=== PATIENT | female | born 1995 | race Caucasian/White ===

== ENCOUNTER 2025-01-09 00:05 | Inpatient (IN) | payer MEDICAID, SELFPAY ==
[2025-01-09] VITALS (29 sets, daily range): BP systolic 103–128; BP diastolic 53–71; PULSE 61–106; RESP 14–17; TEMP 36.3–36.9; O2SAT 96–98; BMI 29.9
--- OUTSIDE RECORDS SUMMARY | 2025-01-09 00:10 | XMS RPT_ITS | CCD ---
Author Organization [facility] Care Team Providers Care Prefabricator Name Role Phone Erick Dover Unavailable No, Physician Primary Care Provider Unavailabl e STEPHANIE TIERRA HAILEE Attending Unavailable PLASCENCIA, TIERRA HAILEE Primary Care Unavailable Plascencia, Tierra Hailee Primary Care Provider No, Physician Unavailable Unavailable Erick Dover Unavailable [phone] PLASCENCIA, TIERRA HAILEE Primary Care Unavailable JULIEN CORONADO Attending Unavail able Plascencia, Tierra Hailee Primary Care Provider [phone] Plascencia BROOMCORN SORTER, Tierra Hailee Primary Care Provider No, Physician Unavailable Unavailable Plascencia BROOMCORN SORTER, Tierra Hailee Unavailable Plascencia BROOMCORN SORTER, Tierra Hailee Primary Care Provider Plascencia BROOMCORN SORTER, Tierra Hailee Primary Care Provider Plascencia BROOMCORN SORTER, Tierra Hailee Unavailable Plascencia BROOMCORN SORTER, Tierra Hailee Unavailable [phone] PLASCENCIA, TIERRA HAILEE Primary Care Unavailable PLASCENCIA, TIERRA HAILEE Attending Unavailable PLASCENCIA, TIERRA HAILEE Referring Unavailable PLASCENCIA, TIERRA HAILEE Primary Care Unavailable RUTH HUNT Admitting Unavailable RUTH HUNT Attending Unavailable PLASCENCIA, TIERRA HAILEE Referring Unavailable PLASCENCIA, TIERRA HAILEE Primary Care Unavailable PLASCENCIA, TIERRA HAILEE Attending Unavailable PLASCENCIA, TIERRA HAILEE Admitting Unavailable PLASCENCIA, TIERRA HAILEE Primary Care Unavailable PLASCENCIA, TIERRA HAILEE Admitting Unavailable PLASCENCIA, TIERRA HAILEE Primary Care Unavailable PLASCENCIA, TIERRA HAILEE Referring Unavailable PLASCENCIA, TIERRA HAILEE Attending Unavailable PLASCENCIA, TIERRA HAILEE Primary Care Unavailable Plascencia BROOMCORN SORTER, Tierra Hailee Primary Care Provider No, Physician Unavailable Unavailable Tierra Plascencia CNP Unavailable Tierra Plascencia CNP Primary Care Provider Tierra Plascencia CNP Unavailable Unavailable Primary Care Provider Unavailabl e EILEEN BARROS Attending Unavailable PLOTTS, HALLE Referring Unavailable DENILSON SUMMERS Attending Unavailable PLOTTS, HALLE Attending Unavailable SELF Referring Unavailable PLOTTS, HALLE Referring Unavailable PLOTTS, HALLE Referring Unavailable STANLEY MURILLO Attending Unavailable PLOTTS, HALLE Referring Unavailable CHIDISTANLEY Attending Unavailable SELF Referring Unavailable PLOTTS, HALLE Attending Unavailable PLOTTS, HALLE Referring Unavailable Allergies Allergy Classification Reported Allergen(s) Allergy Type Date of Onset Reaction(s) Facility Penicillins (antibiotic) (12 sources) Amoxicillin Drug Allergy 01-03-2016 [facility] (18 sources) Amoxicillin; Translations: [Unknown] Drug Allergy 01-03-2016 [facility] Medications Current Medications Medication Drug Class(es) Dates Sig (Normalized) Sig (Original) atovaquone 250 mg / proguanil hydrochloride 100 mg oral tablet (1 source) Antimalarial, Antiprotozoal Start: 06-04-2022 atovaquone-progua niL (MALARONE) 250-100 mg per tablet Indications: Need for malaria prophylaxis Start 2 days prior to entering a malaria-endemic area, continue throughout the stay and for 7 days after returning . 30 tablet 0 06/04/2022 Active ofloxacin 3 mg/ml otic solution (2 sources) Quinolone Antimicrobial Start: 11-30-2018 End: 12-07-2018 ofloxacin (FLOXIN) 0.3 % otic solution Indications: Left ear impacted cerumen Administer 10 (ten) drops to the right ear daily for 7 days . 5 mL 0 11/30/2018 12/07/2018 Active omeprazole 10 mg delayed release oral capsule (4 sources) Proton Pump Inhibitor Start: 09-16-2020 omeprazole (PRILOSEC) 10 MG capsule vitamin with Ca-Iron-FA 27-1 mg Tab (2 sources) take 1 tablet by mouth once daily vitamin with Ca-Iron-FA 27-1 mg Tab Take 1 (one) tablet by mouth daily . 0 Active Completed/Discontinued Medications Medication Drug Class(es) Dates Sig (Normalized) Sig (Original) [id number] 200 actuat albuterol 0.09 mg/actuat metered dose inhaler (7 sources) beta2-Adrenergic Agonist Start: 08-17-2020 End: 06-10-2022 take 2 puff(s) by inhalation every six hours as needed for cough albuterol (Ventolin HFA) 90 mcg/actuation inhaler Indications: Chest congestion Inhale 2 (two) puffs every 6 (six) hours as needed for wheezing, shortness of breath or cough . 1 Inhaler 0 08/17/2020 06/10/2022 Discontinued (Therapy completed) azithromycin 500 mg oral tablet (2 sources) Macrolide Antimicrobial Start: 08-17-2020 End: 08-23-2020 take 1 tablet by mouth once daily azithromycin (ZITHROMAX) 500 MG tablet Indications: Chest congestion Take 1 (one) tablet (500 mg total) by mouth daily . 5 tablet 0 08/17/2020 08/23/2020 Discontinued (Therapy completed) busPIRone hydrochloride 5 mg oral tablet (4 sources) Start: 04-10-2020 End: 04-10-2021 take 1 tablet by mouth three times daily as needed for anxiety busPIRone (BUSPAR) 5 MG tablet Indications: Palpitations , Anxiety Take 1 (one) tablet (5 mg total) by mouth 3 (three) times a day as needed (anxiety) . 270 tablet 1 04/10/2020 08/23/2020 Discontinued (Therapy completed) doxycycline hyclate 100 mg oral tablet (6 sources) Tetracycline-class Drug Start: 08-23-2020 End: 09-12-2020 take 1 tablet by mouth twice daily doxycycline hyclate (VIBRA-TABS) 100 MG tablet Indications: Chest congestion Take 1 (one) tablet (100 mg total) by mouth 2 (two) times a day . 20 tablet 0 08/23/2020 09/12/2020 Discontinued (Therapy completed) Start: 10-20-2019 End: 04-10-2020 take 1 tablet by mouth twice daily doxycycline hyclate (VIBRA-TABS) 100 MG tablet Indications: Infection of toenail Take 1 (one) tablet (100 mg total) by mouth 2 (two) times a day . 20 tablet 0 10/20/2019 04/10/2020 Discontinued (Therapy completed) meclizine hydrochloride 25 mg oral tablet (4 sources) Antiemetic Start: 09-12-2020 End: 06-10-2022 take 1 tablet by mouth three times daily as needed for nausea meclizine (ANTIVERT) 25 mg tablet Indications: Nausea Take 1 (one) tablet (25 mg total) by mouth 3 (three) times a day as needed for nausea . 30 tablet 0 09/12/2020 06/10/2022 Discontinued (Therapy completed) methylPREDNISolone (2 sources) Corticosteroid Start: 08-17-2020 End: 08-23-2020 methylPREDNISolone (MEDROL DOSEPACK) 4 mg tablet Indications: Chest congestion follow package directions . 21 tablet 0 08/17/2020 08/23/2020 Discontinued (Therapy completed) Start: 08-17-2020 End: 08-24-2020 methylPREDNISolone (MEDROL D OSEPACK) 4 mg tablet Indications: Chest congestion follow package directions . 21 tablet 0 08/17/2020 08/24/2020 Active ondansetron 8 mg oral tablet (4 sources) Serotonin-3 Receptor Antagonist Start: 09-12-2020 End: 06-10-2022 take 1 tablet by mouth every eight hours as needed for nausea and nausea and nausea ondansetron (ZOFRAN) 8 MG tablet Indications: Nausea Take 1 (one) tablet (8 mg total) by mouth every 8 (eight) hours as needed for nausea . 30 tablet 0 09/12/2020 06/10/2022 Discontinued (Therapy completed) pantoprazole 40 mg delayed release oral tablet (4 sources) Proton Pump Inhibitor Start: 04-11-2020 End: 04-11-2021 take 1 tablet by mouth once daily pantoprazole (PROTONIX) 40 MG tablet Indications: Gastroesophageal reflux disease, unspecified whether esophagitis present Take 1 (one) tablet (40 mg total) by mouth daily . 90 tablet 1 04/11/2020 08/23/2020 Discontinued (Therapy completed) Start: 04-10-2020 End: 04-11-2020 take 1 tablet by mouth once daily pantoprazole (PROTONIX) 20 MG tablet Indications: Gastroesophageal reflux disease, unspecified whether esophagitis present Take 1 (one) tablet (20 mg total) by mouth daily . 90 tablet 1 04/10/2020 04/11/2020 Discontinued propranolol hydrochloride 10 mg oral tablet (1 source) beta-Adrenergic Mirlande Start: 04-05-2020 End: 04-10-2020 take 1 tablet by mouth three times daily propranoloL (INDERAL) 10 MG tablet take 1 tablet by mouth three times a day if needed for PALPITATIONS 0 04/05/2020 04/10/2020 Discontinued (Therapy completed) Problems Active Problems Problem Classification Problem Date Documented Date Episodic/Chronic Anxiety disorders (10 sources) Anxiety; Translations: [Anxiety disorder, unspecified] Onset: 05-02-2020 05-02-2020 Chronic Esophageal disorders (10 sources) Gastroesophageal reflux disease; Translations: [Gastro-esophageal reflux disease without esophagitis] Onset: 05-02-2020 05-02-2020 Chronic Other complications of (1 source) Other specified related conditions, third trimester; Translations: [Vaginal discharge during in third trimester (HCC)] Onset: 12-14-2024 Episodic Other ear and sense organ disorders (1 source) Hearing difficulty; Translations: [Difficulty hearing, left] Chronic Other ear and sense organ disorders (1 source) Impacted cerumen in left ear; Translations: [Left ear impacted cerumen] Other female genital disorders (5 sources) Mass of ovary; Translations: [Other noninflammatory disorders of ovary, fallopian tube and broad ligament] Onset: 09-26-2020 Episodic Other female genital disorders (2 sources) Other specified noninflammatory disorders of vagina; Translations: [Vaginal discharge] Onset: 12-14-2024 Episodic Other nervous system disorders (1 source) Tremor, unspecified; Translations: [Tremor] Onset: 12-28-2024 Episodic Other and delivery including normal (2 sources) Encounter for supervision of other normal , third trimester; Translations: [Encounter for supervision of normal , unspecified, third trimester] Onset: 11-08-2024 Episodic Other screening for suspected conditions (not mental disorders or infectious disease) (12 sources) Electrocardiogram abnormal; Translations: [Abnormal electrocardiogram [ECG] [EKG]] Onset: 05-02-2020 05-02-2020 Episodic Other upper respiratory infections (1 source) Upper respiratory infection; Translations: [Upper respiratory tract infection, unspecified type] Episodic Polyhydramnios and other problems of amniotic cavity (2 sources) Polyhydramnios, unspecified trimester, not applicable or unspecified; Translations: [Polyhydramnios, third trimester, not applicable or unspecified] Onset: 12-07-2024 Episodic Residual codes; unclassified (1 source) Other general symptoms and signs; Translations: [Suspected Covid-19 Virus Infection] Episodic Residual codes; unclassified (1 source) 38 weeks gestation of ; Translations: [38 weeks gestation of (HCC)] Onset: 12-23-2024 Episodic Residual codes; unclassified (1 source) 36 weeks gestation of ; Translations: [36 weeks gestation of (HCC)] Onset: 12-14-2024 Episodic Residual codes; unclassified (1 source) 35 weeks gestation of ; Translations: [35 weeks gestation of ([facility])] Onset: 12-07-2024 Episodic Residual codes; unclassified (1 source) 33 weeks gestation of ; Translations: [33 weeks gestation of ([facility])] Onset: 11-23-2024 Episodic Past or Other Problems Problem Classification Problem Date Documented Date Episodic/Chronic Cardiac dysrhythmias (10 sources) Palpitations; Translations: [Palpitations] Onset: 05-02-2020 05-02-2020 Episodic Nausea and vomiting (5 sources) Nausea; Translations: [Nausea] Onset: 09-26-2020 Episodic Other circulatory disease (11 sources) Pulmonary congestion ; Translations: [Other specified symptoms and signs involving the circulatory and respiratory systems] Onset: 08-22-2020 Episodic Other female genital disorders (2 sources) Mass of left ovary; Translations: [Other noninflammatory disorders of ovary, fallopian tube and broad ligament] Onset: 09-26-2020 09-26-2020 Episodic Other infections; including parasitic (13 sources) Infection of toenail; Translations: [Cellulitis of unspecified toe] Onset: 10-26-2019 Resolved: 05-02-2020 10-26-2019 Episodic Residual codes; unclassified (3 sources) Prevention status; Translations: [Encounter for other specified prophylactic measures] Onset: 06-10-2022 06-10-2022 Episodic Unclassified (1 source) Traveling Onset: 06-03-2022 Results Test Name Value Interpretation Reference Range Facil ity BACTERIAL VAGINOSIS NAATon 1 02-28-2024 Lactobacillus crispatus+gasseri+j ensenii + Gardnerella vaginalis + Atopobium vaginae rRNA LUCIUS+probe Ql (Vag fld) Not detected Normal Not detected [facility] Comment on above: Order Comment: Speci men Type: BLOOD SPECIMEN Ordering Facility: [facility] Address: [address] [place] [address] Performed By: #### 5 5454-3 #### [facility] CLIA [id number] [address] [place] [address] [place] WALT/TRICHOMONAS NAATon 1 02-28-2024 C. glabrata RNA LUCIUS+probe Ql (Vag fld) Not detected Normal Not detected [facility] Comment on above: Order Comment: Speci men Type: BLOOD SPECIMEN Ordering Facility: [facility] Address: [address] [place] [address] Performed By: #### 5 5454-3 #### [facility] CLIA [id number] [address] [place] [address] [place] Walt sp DNA LUCIUS+probe Ql (Vag fld) Not detected Normal Not detected [facility] Comment on above: Order Comment: Speci men Type: BLOOD SPECIMEN Ordering Facility: [facility] Address: [address] [place] [address] Result Comment: The Walt species group target includes C. albicans, C. tropicalis, C. parapsilosis, and C. dubliniensis. Performed By: #### 5 5454-3 #### [facility] CLIA [id number] [address] [place] [address] [place] T. 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 - Vitamin w/ Iron (PNV NO. 72, W/ IRON,) 27 mg iron- 1 mg Take 1 tablet by mouth once daily. Problem List As Of Date 12/16/2024 Noted Resolved with care elsewhere in [facility]*11/08/2024 Supervision of normal ([facility]) [Z34.90] 11/08/2024 Polyhydramnios affecting ([facility]) [O40.9*11/23/2024 36 weeks gestation of ([facility]) [Z3A.36] 12/14/2024 Encounter Status:Closed by YEIMY DEGROOT on 12/16/24 Normal [facility] BACTERIAL VAGINOSIS NAATon 1 Lactobacillus crispatus+gasseri+j ensenii + Gardnerella vaginalis + Atopobium vaginae rRNA LUCIUS+probe Ql (Vag fld) Not detected Normal Not detected [facility] Comment on above: Order Comment: Speci men Type: SWAB Ordering Facility: [facility] Address: [address] [place] [address] Performed By: #### B VAMP, CVTV #### [facility] CLIA [id number] [address] [place] [address] [place] WALT/TRICHOMONAS NAATon 1 C. glabrata RNA LUCIUS+probe Ql (Vag fld) Not detected Normal Not detected [facility] Comment on above: Order Comment: Speci men Type: SWAB Ordering Facility: [facility] Address: [address] [place] [address] Performed By: #### B VAMP, CVTV #### [facility] CLIA [id number] [address] [place] [address] [place] Walt sp DNA LUCIUS+probe Ql (Vag fld) Not detected Normal Not detected [facility] Comment on above: Order Comment: Speci men Type: SWAB Ordering Facility: [facility] Address: [address] [place] [address] Result Comment: The Walt species group target includes C. albicans, C. tropicalis, C. parapsilosis, and C. dubliniensis. Performed By: #### B VAMP, CVTV #### [facility] CLIA [id number] [address] [place] [address] [place] T. vaginalis DNA LUCIUS+probe Ql (Unsp spec) Not detected Normal Not detected [facility] Comment on above: Order Comment: Speci men Type: SWAB Ordering Facility: [facility] Address: [address] [place] [address] Performed By: #### B VAMP, CVTV #### [facility] CLIA [id number] [address] [place] [address] [place] ROUTINE, GROUP B ST REPTOCOCCUS BY PCRon 12-14-2024 ROUTINE, GROUP B STREPTOCOCCUS BY PCR Not detected Normal [facility] Comment on above: Performed By: #### 5 5454-3 #### [facility] CLIA [id number] [address] [place] [address] [place] Isidro 11-09-2024 CNPN Telephone ([facility]GFVWE) LAURIE ESCOBAR ([id number]) 1995 F Date Time Provider Department 11/09/24 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 72, W/ IRON,) 27 mg iron- 1 mg Take 1 tablet by mouth once daily. - calcium carbonate (TUMS PO) Take by mouth. Problem List As Of Date 11/09/2024 Noted Resolved with care elsewhere in third*11/08/2024 Supervision of normal ([facility]) [Z34.90] 11/08/2024 Encounter Status:Closed by YEIMY DEGROOT on 11/09/24 Normal [facility] C. trachomatis+N. gonorrhoea e DNA LUCIUS+probe Ql (Unsp spec)on 11-08-2024 C. trachomatis rRNA LUCIUS+probe Ql (Unsp spec) Not detected Normal Not detected [facility] Comment on above: Order Comment: Speci men Type: SWAB Ordering Facility: [facility] Address: [address] [place] [address] Performed By: #### 3 6902-5 #### [facility] CLIA [id number] [address] [place] [address] [place] N. gonorrhoeae rRNA LUCIUS+probe Ql (Unsp spec) Not detected Normal Not detected [facility] Comment on above: Order Comment: Speci men Type: SWAB Ordering Facility: [facility] Address: [address] [place] [address] Performed By: #### 3 6902-5 #### [facility] CLIA [id number] [address] [place] [address] [place] CBC W Auto Differential pane l (Bld)on 11-08-2024 Basophils (Bld) [#/Vol] 0.03 10*3/uL Normal <0.11 [facility] Comment on above: Order Comment: Speci men Type: BLOOD SPECIMEN Ordering Facility: [facility] Address: [address] [place] [address] Performed By: #### 5 7021-8 #### [facility] CLIA [id number] [address] [place] [address] [place] Basophils/100 WBC (Bld) 0.4 % Normal [facility] Comment on above: Order Comment: Speci men Type: BLOOD SPECIMEN Ordering Facility: [facility] Address: [address] [place] [address] Performed By: #### 5 7021-8 #### [facility] CLIA [id number] [address] [place] [address] [place] Differential cell count method Nom (Bld) Auto Normal [facility] Comment on above: Order Comment: Speci men Type: BLOOD SPECIMEN Ordering Facility: [facility] Address: [address] [place] [address] Performed By: #### 5 7021-8 #### [facility] CLIA [id number] [address] [place] [address] [place] Eosinophils (Bld) [#/Vol] 0.04 10*3/uL Normal <0.46 [facility] Comment on above: Order Comment: Speci men Type: BLOOD SPECIMEN Ordering Facility: [facility] Address: [address] [place] [address] Performed By: #### 5 7021-8 #### [facility] CLIA [id number] [address] [place] [address] [place] Eosinophils/100 WBC (Bld) 0.5 % Normal [facility] Comment on above: Order Comment: Speci men Type: BLOOD SPECIMEN Ordering Facility: [facility] Address: [address] [place] [address] Performed By: #### 5 7021-8 #### [facility] CLIA [id number] [address] [place] [address] [place] Erythrocyte distribution width (RBC) [Ratio] 13.9 % Normal 11.5-15.0 [facility] Comment on above: Order Comment: Speci men Type: BLOOD SPECIMEN Ordering Facility: [facility] Address: [address] [place] [address] Performed By: #### 5 7021-8 #### [facility] CLIA [id number] [address] [place] [address] [place] Hematocrit (Bld) [Volume fraction] 36.2 % Normal 36.0-46.0 [facility] Comment on above: Order Comment: Speci men Type: BLOOD SPECIMEN Ordering Facility: [facility] Address: [address] [place] [address] Performed By: #### 5 7021-8 #### [facility] CLIA [id number] [address] [place] [address] [place] Hemoglobin (Bld) [Mass/Vol] 12.4 g/dL Normal 11.5-15.5 [facility] Comment on above: Order Comment: Speci men Type: BLOOD SPECIMEN Ordering Facility: [facility] Address: [address] [place] [address] Performed By: #### 5 7021-8 #### [facility] CLIA [id number] [address] [place] [address] [place] Immature granulocytes (Bld) [#/Vol] 0.13 10*3/uL High <0.10 [facility] Comment on above: Order Comment: Speci men Type: BLOOD SPECIMEN Ordering Facility: [facility] Address: [address] [place] [address] Performed By: #### 5 7021-8 #### [facility] CLIA [id number] [address] [place] [address] [place] Immature granulocytes/100 WBC (Bld) 1.6 % Normal [facility] Comment on above: Order Comment: Speci men Type: BLOOD SPECIMEN Ordering Facility: [facility] Address: [address] [place] [address] Performed By: #### 5 7021-8 #### [facility] CLIA [id number] [address] [place] [address] [place] Lymphocytes (Bld) [#/Vol] 1.45 10*3/uL Normal 1.00-4.00 [facility] Comment on above: Order Comment: Speci men Type: BLOOD SPECIMEN Ordering Facility: [facility] Address: [address] [place] [address] Performed By: #### 5 7021-8 #### [facility] CLIA [id number] [address] [place] [address] [place] Lymphocytes/100 WBC (Bld) 17.4 % Normal [facility] Comment on above: Order Comment: Speci men Type: BLOOD SPECIMEN Ordering Facility: [facility] Address: [address] [place] [address] Performed By: #### 5 7021-8 #### [facility] CLIA [id number] [address] [place] [address] [place] MCH (RBC) [Entitic mass] 29.5 pg Normal 26.0-34.0 [facility] Comment on above: Order Comment: Speci men Type: BLOOD SPECIMEN Ordering Facility: [facility] Address: [address] [place] [address] Performed By: #### 5 7021-8 #### [facility] CLIA [id number] [address] [place] [address] [place] MCHC (RBC) [Mass/Vol] 34.3 g/dL Normal 30.5-36.0 [facility] Comment on above: Order Comment: Speci men Type: BLOOD SPECIMEN Ordering Facility: [facility] Address: [address] [place] [address] Performed By: #### 5 7021-8 #### [facility] CLIA [id number] [address] [place] [address] [place] MCV (RBC) [Entitic vol] 86.2 fL Normal 80.0-100.0 [facility] Comment on above: Order Comment: Speci men Type: BLOOD SPECIMEN Ordering Facility: [facility] Address: [address] [place] [address] Performed By: #### 5 7021-8 #### [facility] CLIA [id number] [address] [place] [address] [place] Monocytes (Bld) [#/Vol] 0.71 10*3/uL Normal <0.87 [facility] Comment on above: Order Comment: Speci men Type: BLOOD SPECIMEN Ordering Facility: [facility] Address: [address] [place] [address] Performed By: #### 5 7021-8 #### [facility] CLIA [id number] [address] [place] [address] [place] Monocytes/100 WBC (Bld) 8.5 % Normal [facility] Comment on above: Order Comment: Speci men Type: BLOOD SPECIMEN Ordering Facility: [facility] Address: [address] [place] [address] Performed By: #### 5 7021-8 #### [facility] CLIA [id number] [address] [place] [address] [place] Neutrophils (Bld) [#/Vol] 5.97 10*3/uL Normal 1.45-7.50 [facility] Comment on above: Order Comment: Speci men Type: BLOOD SPECIMEN Ordering Facility: [facility] Address: [address] [place] [address] Performed By: #### 5 7021-8 #### [facility] CLIA [id number] [address] [place] [address] [place] Neutrophils/100 WBC (Bld) 71.6 % Normal [facility] Comment on above: Order Comment: Speci men Type: BLOOD SPECIMEN Ordering Facility: [facility] Address: [address] [place] [address] Performed By: #### 5 7021-8 #### [facility] CLIA [id number] [address] [place] [address] [place] Nucleated RBC (Bld) [#/Vol] 10*3/uL Normal <0.01 [facility] Comment on above: Order Comment: Speci men Type: BLOOD SPECIMEN Ordering Facility: [facility] Address: [address] [place] [address] Performed By: #### 5 7021-8 #### [facility] CLIA [id number] [address] [place] [address] [place] Nucleated RBC/100 WBC (Bld) [Ratio] 0.0 /100 WBC Normal [facility] Comment on above: Order Comment: Speci men Type: BLOOD SPECIMEN Ordering Facility: [facility] Address: [address] [place] [address] Performed By: #### 5 7021-8 #### [facility] CLIA [id number] [address] [place] [address] [place] Platelet mean volume (Bld) [Entitic vol] 10.9 fL Normal 9.0-12.7 [facility] Comment on above: Order Comment: Speci men Type: BLOOD SPECIMEN Ordering Facility: [facility] Address: [address] [place] [address] Performed By: #### 5 7021-8 #### [facility] CLIA [id number] [address] [place] [address] [place] Platelets (Bld) [#/Vol] 196 10*3/uL Normal 150-400 [facility] Comment on above: Order Comment: Speci men Type: BLOOD SPECIMEN Ordering Facility: [facility] Address: [address] [place] [address] Performed By: #### 5 7021-8 #### [facility] CLIA [id number] [address] [place] [address] [place] RBC (Bld) [#/Vol] 4.20 10*6/uL Normal 3.90-5.20 [facility] Comment on above: Order Comment: Speci men Type: BLOOD SPECIMEN Ordering Facility: [facility] Address: [address] [place] [address] Performed By: #### 5 7021-8 #### [facility] CLIA [id number] [address] [place] [address] [place] WBC (Bld) [#/Vol] 8.33 10*3/uL Normal 3.70-11.00 [facility] Comment on above: Order Comment: Speci men Type: BLOOD SPECIMEN Ordering Facility: [facility] Address: [address] [place] [address] Performed By: #### 5 7021-8 #### [facility] CLIA [id number] [address] [place] [address] [place] GESTATIONAL GLUCOSE SCREEN, 1-HOUR, 50 GRAM, NON-FASTINGon 11-08-2024 Glucose [Mass/Vol] 99 mg/dL Normal 74-134 [facility] Comment on above: Order Comment: Corey lujan Type: BLOOD SPECIMEN Ordering Facility: [facility] Address: [address] [place] [address] Result Comment: [facility] Congress of Obstetricians and Gynecologists (Theresa/Noe) guidelines state a gestational diabetes mellitus positive screen is made, in women not previously diagnosed with overt diabetes, when the 1 hr plasma glucose level is equal to or above 140 mg/dL. [facility] Tobacco Prevention Health Educator and [facility] [place] recommends a 135 mg/dL cutoff. Performed By: #### 5 5454-3 #### [facility] CLIA [id number] [address] [place] [address] [place] HBV surface Ag Ser Qlon 10-19 HBV surface Ag Ql (S) Negative Normal Negative [facility] Comment on above: Order Comment: Corey lujan Type: BLOOD SPECIMEN Ordering Facility: [facility] Address: [address] [place] [address] Performed By: #### 3 1201-7, 46345-1, 5195-3 #### [facility] CLIA [id number] [address] [place] [address] [place] HCV Ab Ser Qlon 11-08-2024 HCV Ab Ql (S) Negative Normal Negative [facility] Comment on above: Order Comment: Corey lujan Type: BLOOD SPECIMEN Ordering Facility: [facility] Address: [address] [place] [address] Result Comment: The result suggests no evidence of infection with Hepatitis C virus. Should recent infection be suspected, repeat testing may be considered 4-6 weeks after this draw. Performed By: #### 5 5454-3 #### [facility] CLIA [id number] [address] [place] [address] [place] HIV 1+2 Ab IA Qlon HIV 1 and 2 Ab IA.rapid Nom (S/P/Bld) Normal [facility] Comment on above: Order Comment: Speci men Type: BLOOD SPECIMEN Ordering Facility: [facility] Address: [address] [place] [address] Result Comment: Test not indicated. Performed By: #### 3 1201-7, 51479-5, 5-3 #### [facility] CLIA [id number] [address] [place] [address] [place] HIV 1+2 Ab+HIV1 p24 Ag IA Ql Non-Reactive Normal Nonreactive [facility] Comment on above: Order Comment: Speci men Type: BLOOD SPECIMEN Ordering Facility: [facility] Address: [address] [place] [address] Performed By: #### 3 1201-7, 56601-2, 5194-04 #### [facility] CLIA [id number] [address] [place] [address] [place] HIV immunoassay testing algorithm interpretation (S/P/Bld) [Interp] Normal [facility] Comment on above: Order Comment: Speci men Type: BLOOD SPECIMEN Ordering Facility: [facility] Address: [address] [place] [address] Result Comment: No e vidence of HIV-1 or HIV-2 infection. Should recent infection be suspected, repeat testing may be considered 2-3 weeks after this draw. [place] Rev. Code 3701.243(E): This information has been disclosed to you from confidential records protected from disclosure by state law. You shall make no further disclosure of this information without the specific, written, and informed release of the individual to whom it pertains or as otherwise permitted by state law. A general authorization for the release of medical or other information is not sufficient for the purpose of the release of HIV test results or diagnoses. Performed By: #### 3 1201-7, 74556-4, 3 #### [facility] CLIA [id number] [address] [place] [address] [place] HbA1c (Bld)on 11-08-2024 Average glucose Estimated from glycated hemoglobin (Bld) [Mass/Vol] 77 mg/dL Normal [facility] Comment on above: Order Comment: Corey lujan Type: BLOOD SPECIMEN Ordering Facility: [facility] Address: [address] [place] [address] Result Comment: eAG: (Estimated average glucose) is a calculated value from HgbA1c and is screening representative of the average blood glucose level in the last 2-3 month period. Performed By: #### 5 5454-3 #### [facility] CLIA [id number] [address] [place] [address] [place] HbA1c (Bld) [Mass fraction] 4.3 % Normal 4.3-5.6 [facility] Comment on above: Order Comment: Corey lujan Type: BLOOD SPECIMEN Ordering Facility: [facility] Address: [address] [place] [address] Result Comment: Amer [place] Diabetes Association guidelines indicate that patients with HgbA1c in the range 5.7-6.4% are at increased risk for development of diabetes, and intervention by lifestyle modification may be beneficial. HgbA1c greater or equal to 6.5% is considered diagnostic of diabetes. Performed By: #### 5 5454-3 #### [facility] CLIA [id number] [address] [place] [address] [place] Reagin and Treponema pallidu m IgG and IgM [Interp]on 11-08-2024 T. pallidum IgG+IgM IA Ql (S) Non-Reactive Normal Nonreactive [facility] Comment on above: Order Comment: Corey lujan Type: BLOOD SPECIMEN Ordering Facility: [facility] Address: [address] [place] [address] Performed By: #### 3 1201-7, 97075-8, 5195-3 #### [facility] CLIA [id number] [address] [place] [address] [place] Reagin+T pallidum IgG+IgM Se rPl-Impon 11-08-2024 Reagin and Treponema pallidum IgG and IgM [Interp] Cannot exclude recent Treponemal infection if specimen collected within 7-10 days after appearance of suspect lesions or 2-3 weeks after an exposure. Clinical correlation is required. Normal [facility] Comment on above: Order Comment: Speci men Type: BLOOD SPECIMEN Ordering Facility: [facility] Address: [address] [place] [address] Performed By: #### 3 1201-7, 04791-9, 5195-3 #### [facility] CLIA [id number] [address] [place] [address] TYPE + SCREEN PRENATALon ABO O Normal [facility] Comment on above: Order Comment: Speci men Type: BLOOD SPECIMEN Ordering Facility: [facility] Address: [address] [place] [address] Performed By: #### T SPN #### [facility] CLIA [id number] [address] [place] [address] [place] Rh Nom (Bld) Positive Normal [facility] Comment on above: Order Comment: Speci men Type: BLOOD SPECIMEN Ordering Facility: [facility] Address: [address] [place] [address] Performed By: #### T SPN #### [facility] CLIA [id number] [address] [place] [address] [place] TYPE AND SCREEN EXPIRATION 11/11/2024 23:59 Normal [facility] Comment on above: Order Comment: Speci men Type: BLOOD SPECIMEN Ordering Facility: [facility] Address: [address] [place] [address] Performed By: #### T SPN #### [facility] CLIA [id number] [address] [place] [address] [place] [facility] CNPJeffy Telephone (OBGYWM) LAURIE ESCOBAR ([id number]) 1995 F Date Time Provider Department 09/24/24 SELF OBGYWM During your visit today, we recorded the following information about you: Latricia, Charline Tubbs 09/24/2024 4:17 PM Signed Patient calling in wanting to transfer her OB care to [facility]. Patient is currently in [place] and has been receiving care over at one of their facilities. Patient is unsure of the name but states she is able to bring records with her when she comes to her appt. Patient [place] back [place] the country on [place] 02, and she is currently 25 weeks . Patient states when she receives the call from the nurse coordinator she will not be able to answer due to her location, however she will be able to call right back. Patient states it is okay to leave a detailed message. Please review and advise. Charline Rome September 24, 2024 4:16 PM Eileen Fair, ABDIRAHMAN 10/01/2024 2:37 PM Addendum Call placed to patient to triage for new OB appt. No answer, LVM that I would call try her back next week. Charline Rome 10/01/2024 2:22 PM Signed Patient just signed up for H5[employer], she is asking if you are able to send the questions through there due to the barriers of her being able to receive calls where she is located. Please advise. Charline Rome October 01, 2024 2:22 PM Eileen Fair, ABDIRAHMAN 10/01/2024 2:38 PM Signed Sent patient My Chart message. Eileen Fair, ABDIRAHMAN 10/01/2024 3:16 PM Signed See correspondence. Closing encounter. Allergies As of Date: 09/24/2024 (Not on File) Date Reviewed: Never Reviewed Reason for Visit: [facility] - Other [5730] Cmt: Initial OB RN CC pool Problem List As Of Date: 09/24/2024 (None) Encounter Status:Closed by EILEEN FAIR on 10/01/[address] [facility] [address] ABDOMEN PELVIS WITH IV CO NTRAST ONLYon 09-11-2020 CT ABDOMEN PELVIS WITH IV CONTRAST ONLY EXAMINATION: CT ABDOMEN PELVIS WITH IV CONTRAST ONLY HISTORY: ORDERING SYSTEM PROVIDED HISTORY: LLQ pain, +diarrhea, TECHNOLOGIST PROVIDED HISTORY: Illness/Other Reason for exam: LLQ ABD PAIN, DIARRHEA. Encounter Type: Unknown Additional signs and symptoms: UNKNOWN ORDERING SYSTEM PROVIDED DIAGNOSIS CODES: COMPARISON: None. TECHNIQUE: CT examination of the abdomen and pelvis following the administration of intravenous contrast. Coronal and sagittal reformations were performed. Dose reduction techniques were achieved by using automated exposure control and/or adjustment of mA and/or kV according to patient size and/or use of iterative reconstruction technique. CONTRAST: Iopamidol 76% intravenous solution - 75 mL. FINDINGS: Visualized lung bases are clear. The abdominal aorta is of normal caliber. The spleen, pancreas, adrenal glands and both kidneys are satisfactory. The gallbladder shows no calcified gallstones. There is periportal edema which may be secondary to aggressive hydration. No focal liver parenchymal lesions. The unopacified loops of small bowel and colon appear satisfactory. The appendix is not clearly visualized. There is a cystic lesion within the left adnexa measuring approximately 6 x 3.6 cm which should be further evaluated with pelvic ultrasound. This is likely ovarian in origin. There is also free pelvic fluid. IMPRESSION: 6 x 3.6 cm cystic lesion associated with the left ovary should be further evaluated with ultrasound. There is free pelvic fluid. Periportal edema may be secondary to hydration. /[facility] Workstation ID: [id number] Dictated by: DOYLE VICENTE on FriSep 11, 2020 1:53:55 AM EDT Transcribed by: KAE RODRIGUEZ on FriSep 11, 2020 2:00:11 AM EDT Finalized by: DOYLE VICENTE on FriSep 11, 2020 6:06:21 AM EDT [facility] Comment on above: Order Comment: Injur y/Trauma or Illness?:Illness/Other How long have you had these symptoms (acute/chronic)?:Acute Reason for exam?:LLQ ABD PAIN, DIARRHEA. Type of Exam?:Unknown Additional signs and symptoms?:UNKNOWN US PELVIC TRANSVAGINAL WITH COLOR FLOWon 09-11-2020 US PELVIC TRANSVAGINAL WITH COLOR FLOW EXAMINATION: US PELVIC TRANSVAGINAL WITH COLOR FLOW HISTORY: ORDERING SYSTEM PROVIDED HISTORY: Radiology recommending US based on CT: 6 x 3.6 cm cystic lesion associated with the left ovary should be further evaluated with ultrasound., TECHNOLOGIST PROVIDED HISTORY: Illness/Other Reason for exam: Follow up CT finding in left adnexa Cancer History: u Surgery, RadiationHistory: u Encounter Type: Subsequent/Follow-up Additional signs and symptoms: Dizziness ORDERING SYSTEM PROVIDED DIAGNOSIS CODES: COMPARISON: Correlation with CT examination of the abdomen and pelvis 09/11/2020. TECHNIQUE: Kinney-scale and color Doppler and spectral Doppler ultrasound examination of the pelvis was performed transvaginally. FINDINGS: Uterus measures 8.1 x 3.8 x 5.0 cm. Endometrial echo complex measures less than 2 mm. No uterine mass. Right ovary measures 3.7 x 1.8 x 3.0 cm and contains physiologic cysts/follicles and is normal in appearance. Normal arterial spectral Doppler waveform is present within the right ovary with resistive index of 0.57. Normal venous spectral Doppler waveform is present within the right ovary. Left ovary measures 6.2 x 5.4 x 3.1 cm and contains an ovoid heterogeneous echogenicity lesion measuring 5.0 x 3.9 x 2.8 cm. Normal arterial spectral Doppler waveform is present within the left ovary with resistive index of 0.68. Normal venous spectral Doppler waveform is present within the left ovary. The left ovarian lesion without central color Doppler flow. Small amount of pelvic free fluid adjacent to the left ovary. IMPRESSION: 1. Normal appearance of the uterus and right ovary. 2. 5 cm heterogeneous hypoechoic lesion within the left ovary corresponding to that seen by CT. Differential considerations include a hemorrhagic cyst, endometrioma and epithelial neoplasm, either benign or malignant. Follow-up ultrasound in 6 weeks is recommended to confirm stability/resolution. Small amount of free fluid is noted within the left adnexa. Normal arterial and spectral Doppler waveforms are present within both ovaries. [facility] Workstation ID: [id number] Dictated by: MACHELLE LOPEZ on FriSep 11, 2020 3:43:05 AM EDT Transcribed by: JOSELUIS LOPEZ on FriSep 11, 2020 3:53:48 AM EDT Finalized by: MACHELLE LOPEZ on FriSep 11, 2020 5:06:25 AM EDT Normal [facility] Comment on above: Order Comment: Injur y/Trauma or Illness?:Illness/Other How long have you had these symptoms (acute/chronic)?:Unknown Reason for exam?:Follow up CT finding in left adnexa History of cancer?:u Surgeries, chemotherapy, or radiation?:u Type of Exam?:Subsequent/Follow-up Additional signs and symptoms?:[facility] Comprehensive metabolic 2000 panelOrdered By: Tierra Plascencia on 08-23-2020 Albumin [Mass/Vol] 4.3 g/dL 3.2 - 5.2 g/dL [facility] ALP [Catalytic activity/Vol] 47 U/L 40 - 140 U/L [facility] ALT [Catalytic activity/Vol] 20 U/L 14 - 65 U/L [facility] Anion gap [Moles/Vol] 8 mmol/L Low 10 - 20 mmol/L [facility] AST [Catalytic activity/Vol] 9 U/L 0 - 45 U/L [facility] Bilirubin [Mass/Vol] 0.4 mg/dL 0.0 - 1.3 mg/dL [facility] Calcium [Mass/Vol] 9.2 mg/dL 8.4 - 10. 2 mg/dL [facility] Chloride [Moles/Vol] 108 mmol/L 98 - 108 mmol/L [facility] Creatinine [Mass/Vol] 0.71 mg/dL 0.40 - 1.10 [facility] GFR/1.73 sq M.predicted CKD-EPI (S/P/Bld) [Vol rate/Area] 121 >=60 mL/min/1.73 m2 [facility] Glucose [Mass/Vol] 96 mg/dL 65 - 99 mg/dL [facility] HCO3 [Moles/Vol] 28 mmol/L 21 - 32 mmol/L [facility] Interpretation and review of laboratory results Abnormal [facility] Potassium [Moles/Vol] 3.5 mmol/L 3.5 - 5.1 mmol/L [facility] Protein [Mass/Vol] 7.4 g/dL 6.0 - 8.0 g/dL [facility] Sodium [Moles/Vol] 140 mmol/L 135 - 145 mmol/L [facility] Urea nitrogen [Mass/Vol] 9 mg/dL 8 - 25 mg/dL [facility] Urea nitrogen/Creatinine [Mass ratio] 12.7 mg/mg [facility] The eGFR should be used for monitoring renal function only and not for medication dosing. [facility] XR CHEST AP/PA AND LATOrdere d By: Tierra Plascencia on 08-23-2020 No focal airspace disease. [employer] Workstation ID: [id number] [facility] EXAMINATION: XR CHEST AP/PA AND LAT HISTORY: ORDERING SYSTEM PROVIDED HISTORY: chest congestion, TECHNOLOGIST PROVIDED HISTORY: Illness/Other Reason for exam: chest congestion/pressure, cough, loss of appetit Cancer History: u Surgery, RadiationHistory: u Encounter Type: Initial Additional signs and symptoms: neg covid test ORDERING SYSTEM PROVIDED DIAGNOSIS CODES: R09.89 Chest congestion COMPARISON: None. FINDINGS: Two-view chest x-ray. No pneumothorax, pleural effusion or focal airspace consolidation. Heart is normal in size. Bony thorax is unremarkable. [facility] Interface, Rad In Fu ji Speechq - 08/23/2020 8:03 PM EDT EXAMINATION: XR CHEST AP/PA AND LAT HISTORY: ORDERING SYSTEM PROVIDED HISTORY: chest congestion, TECHNOLOGIST PROVIDED HISTORY: Illness/Other Reason for exam: chest congestion/pressure, cough, loss of appetit Cancer History: u Surgery, RadiationHistory: u Encounter Type: Initial Additional signs and symptoms: neg covid test ORDERING SYSTEM PROVIDED DIAGNOSIS CODES: R09.89 Chest congestion COMPARISON: None. FINDINGS: Two-view chest x-ray. No pneumothorax, pleural effusion or focal airspace consolidation. Heart is normal in size. Bony thorax is unremarkable. IMPRESSION: No focal airspace disease. [employer] Workstation ID: [id number] [facility] XR CHEST AP/PA AND LATon XR CHEST AP/PA AND LAT EXAMINATION: XR CHEST AP/PA AND LAT HISTORY: ORDERING SYSTEM PROVIDED HISTORY: chest congestion, TECHNOLOGIST PROVIDED HISTORY: Illness/Other Reason for exam: chest congestion/pressure, cough, loss of appetit Cancer History: u Surgery, RadiationHistory: u Encounter Type: Initial Additional signs and symptoms: neg covid test ORDERING SYSTEM PROVIDED DIAGNOSIS CODES: R09.89 Chest congestion COMPARISON: None. FINDINGS: Two-view chest x-ray. No pneumothorax, pleural effusion or focal airspace consolidation. Heart is normal in size. Bony thorax is unremarkable. IMPRESSION: No focal airspace disease. [employer] Workstation ID: [id number] Dictated by: DENA TEJADA on FriAug 23, 2020 10:35:45 AM EDT Transcribed by: JULIEN DIAZ on FriAug 23, 2020 11:11:37 AM EDT Finalized by: DENA TEJADA on FriAug 23, 2020 8:00:48 PM EDT Normal [facility] Comment on above: Order Comment: Injur y/Trauma or Illness?:Illness/Other How long have you had these symptoms (acute/chronic)?:Acute Reason for exam?:chest congestion/pressure, cough, loss of appetit History of cancer?:u Surgeries, chemotherapy, or radiation?:u Type of Exam?:Initial Additional signs and symptoms?:neg covid test Otheron 04-18-2020 Aortic valve area 3.75553 cm [facility] AV mean gradient 3 mmHg [facility] EF 61.2926 % [facility] Patient Info Name: LAURIE ESCOBAR Age: 24 years : 1995 Gender: Female Ht: 168 cm Wt: 53 kg BSA: 1.56 m2 HR: 55 bpm BP: 105 / 79 mmHg Heart Rhythm: Bradycardia, Sinus Rhythm Technical Quality: Good Exam Date: 04/18/2020 8:01 AM Patient Status: Outpatient General Activities Therapist: Nany Spain, CALIST[place], RVT Exam Type: ECHOCARDIOGRAM COMPLETE Study Info Indications - Abnormal electrocardiogram [ECG] [EKG] Referring Physician: TIERRA PLASCENCIA ; [id number] BMI: 18.72 kg/m2 Summary 1. Left ventricular chamber size, wall thickness, systolic and diastolic function are normal with no regional wall motion abnormalities with an estimated ejection fraction of 60-65%. 2. Right ventricular chamber dimension is normal. Right ventricular systolic function is normal. 3. There is no hemodynamically significant valve disease. 4. There is no pulmonary hypertension, estimated right ventricle systolic pressure is 19 mmHg. History/Risk Factors Tobacco Use: Never History/Risk Factors chest pain, palpitations, MVP. Procedure(s): Complete two-dimensional, color flow and Doppler transthoracic echocardiogram is performed. Left Ventricle Left ventricular chamber size, wall thickness, systolic and diastolic function are normal with no regional wall motion abnormalities with an estimated ejection fraction of 60-65%. Right Ventricle Right ventricular chamber dimension is normal. Right ventricular systolic function is normal. Left Atria Left atrial chamber is normal with a left atrial volume index of 25 ml/m2 by BP MOD. Right Atria Right atrial chamber dimension is normal. Atrial Septum Intact interatrial septum visualized by color Doppler and 2D imaging. Aortic Valve The aortic valve is poorly visualized. There is no aortic valve sclerosis. There is no aortic valve stenosis with a peak velocity of 1.2 m/s, mean gradient of 3 mmHg, and aortic valve area of 3.2 cm2. There is no aortic valve regurgitation. Pulmonic Valve The pulmonic valve is not well visualized. There is no pulmonic valve stenosis. There is no pulmonic regurgitation. Mitral Valve The mitral valve has normal leaflets. There is no mitral valve stenosis. There is no mitral valve regurgitation. Tricuspid Valve The tricuspid valve leaflets are normal. There is no significant tricuspid valve stenosis. There is trace tricuspid valve regurgitation. There is no pulmonary hypertension, estimated right ventricle systolic pressure is 19 mmHg. Pericardium/Pleural The pericardium appears normal. There is no pericardial effusion. Inferior Vena Cava Normal inferior vena cava with >50% collapse upon inspiration consistent with normal right atrial pressure. Aorta The aortic measurements are indexed to age and body surface area. The aortic root is normal measuring 2.2 cm with an index of 1.4 cm/m2. The proximal ascending aorta is normal measuring 2.5 cm with an index of 1.6 cm/m2. Wall Motion Scoring Wall Motion Scoring Index: 1.00 Left Ventricular Outflow Tract ---- Name Value Normal ---- LVOT 2D ---- LVOT Diameter 2.0 cm LVOT Doppler ---- LVOT Peak Velocity 1.1 m/s LVOT Mean Gradient 2 mmHg LVOT VTI 28 cm LVOT VTI/AV VTI Ratio 1.0 LVOT Stroke Volume 88 ml LVOT Stroke Index 56.66 ml/m2 Pulmonic Valve ---- Name Value Normal ---- PV Doppler ---- PV Peak Velocity 0.93 m/s PV Mean Gradient 2 mmHg PV VTI 24 cm PV Regurgitation Doppler ---- CT Peak End Diastolic Velocity 88 cm/s Mitral Valve ---- Name Value Normal ---- MV Doppler ---- MV Peak Velocity 1.17 m/s MV Mean Gradient 1 mmHg MV VTI 32 cm MV Decel [place] 266 cm/s2 MV PHT 54 ms MV Area (PHT) 4.1 cm2 4.0-5.0 MV Area (Cont Eq VTI) 2.8 cm2 MV Area Index (Cont Eq VTI) 1.77 cm2/m2 MV Diastolic Function ---- MV E Peak Velocity 1 m/s MV A Peak Velocity 0 m/s MV E/A 3.1 MV Decel Time 187 ms MV Annular TDI ---- MV Septal e' Velocity 11.1 cm/s >=8.0 MV Septal a' Velocity 7.0 cm/s MV E/e' (Septal) 9.5 <=8.0 MV A/a' (Septal) 4.9 MV Lateral e' Velocity 17.7 cm/s >=10.0 MV Lateral a' Velocity 6.1 cm/s MV E/e' (Lateral) 5.9 <=8.0 MV A/a' (Lateral) 5.6 MV e' Average 14.40 MV a' Average 6.5 MV E/e' (Average) 7.7 MV A/a' (Average) 5.3 Tricuspid Valve ---- Name Value Normal ---- TV Regurgitation Doppler ---- TR Peak Velocity 2.01 m/s Estimated PAP/RSVP ---- RA Pressure 3 mmHg <=5 PA Systolic Pressure 19 mmHg <=36 RV Systolic Pressure 19 mmHg <36 Aorta ---- Name Value Normal ---- Ascending Aorta ---- Ao Root Diameter (2D) 2.2 cm 2.7-3.3 Ao Root Diam Index (2D) 1.4 cm/m2 1.6-2.0 Prox Asc Ao Diameter 2.5 cm 2.3-3.1 Prox Asc Ao Diameter Index 1.6 cm/m2 1.3-1.9 Venous ---- Name Value Normal ---- IVC/SVC ---- IVC Diameter (Exp 2D) 1.6 cm <=2.1 Aortic Valve ---- Name Value Normal ---- AV Doppler ---- AV Peak Velocity 1.2 m/s AV Mean Gradient 3 mmHg AV VTI 28 cm AV Area (Cont Eq VTI) 3.2 cm2 AV Area Index (Cont Eq VTI) 2 cm2/m2 AV Area (Cont Eq Vince) 2.8 cm2 AV Area Index (Cont Eq Vince) 2 cm2/m2 LVOT Vmax/AV Vmax 0.91 LVOT VTI/AV VTI Ratio 1.0 AV Regurgitation 2D ---- LVOT Area 3.1 cm2 Ventricles ---- Name Value Normal ---- LV Dimensions 2D/MM ---- IVS Diastolic Thickness (2D) 0.7 cm 0.6-0.9 LVID Diastole (2D) 4.5 cm 3.8-5.2 LVIW Diastolic Thickness (2D) 0.7 cm 0.6-0.9 LVID Systole (2D) 2.9 cm 2.2-3.5 LVOT Diameter 2.0 cm LV Mass (2D Cubed) 96.18 g 67.00-162.00 LV Mass Index (2D Cubed) 62 g/m2 43-95 Relative Wall Thickness (2D) 0.31 <=0.42 LV Fractional Shortening/Ejection Fraction 2D/MM ---- LV Fractional Shortening (2D) 36 % 27-45 LV EF (2D Teicholz) 66 % 54-74 LV Diastolic Volume (4C MOD) 60 ml LV Systolic Volume (4C MOD) 23 ml LV EF (4C MOD) 61 % LV Diastolic Volume (2C MOD) 64 ml LV Systolic Volume (2C MOD) 25 ml LV EF (2C MOD) 60 % LV Diastolic Volume (BP MOD) 64 ml 46-106 LV Diastolic Volume Index (BP MOD) 41 ml/m2 29-61 LV Systolic Volume (BP MOD) 25 ml 14-42 LV Systolic Volume Index (BP MOD) 16 ml/m2 8-24 LV EF (BP MOD) 61 % 55-70 LV Diastolic Length (4C) 6.2 cm LV Systolic Length (4C) 5.2 cm LV End Diastolic Volume (BP A-L) 66 ml LV End Systolic Volume (BP A-L) 25 ml LV EF (BP A-L) 63 % LV Stroke Volume (4C MOD) 36 ml LV SI (4C MOD) 23.38 ml/m2 RV Dimensions 2D/MM ---- RV Basal Diastolic Dimension 2.6 cm 2.5-4.1 RV Mid-Cavity Diastolic Dimension 2.6 cm 1.9-3.5 TAPSE 2.3 cm >=1.7 RV Systolic Function ---- RV s' Velocity 0.1 m/s 0.1-0.2 Atria ---- Name Value Normal ---- LA Dimensions ---- LA Area (4C) 15.0 cm2 LA Length (4C) 4.9 cm LA Area (2C) 15.8 cm2 LA Length (2C) 4.8 cm LA Volume (4C MOD) 36 ml LA Volume (2C MOD) 42 ml LA Volume (4C A-L) 39 ml LA Volume (2C A-L) 44 ml LA Volume (BP A-L) 42 ml LA Volume Index (BP A-L) 27 ml/m2 <=34 LA Volume (BP MOD) 39 ml LA Volume Index (BP MOD) 25 ml/m2 16-34 RA Dimensions ---- RA Systolic Major [place] Length (4C) 4.22 cm <=5.30 RA Area (4C) 12.9 cm2 <=18.0 RA Area (4C) Index 8 cm2/m2 RA ESV (4C MOD) 29 ml 15-27 RA ESV Index (4C MOD) 19 ml/m2 <=27 Report Signatures Finalized by Pedro Lloyd MD on 04/18/2020 02:36 PM [facility] Interface, Rad In [facility] Xper Echopacs - 04/18/2020 2:39 PM EST Patient Info Name: LAURIE ESCOBAR Age: 24 years : 1995 Gender: Female Ht: 168 cm Wt: 53 kg BSA: 1.56 m2 HR: 55 bpm BP: 105 / 79 mmHg Heart Rhythm: Bradycardia, Sinus Rhythm Technical Quality: Good Exam Date: 04/18/2020 8:01 AM Patient Status: Outpatient General Activities Therapist: Nany Spain RDCS, RVT Exam Type: ECHOCARDIOGRAM COMPLETE Study Info Indications - Abnormal electrocardiogram [ECG] [EKG] Referring Physician: TIERRA PLASCENCIA ; [id number] BMI: 18.72 kg/m2 Summary 1. Left ventricular chamber size, wall thickness, systolic and diastolic function are normal with no regional wall motion abnormalities with an estimated ejection fraction of 60-65%. 2. Right ventricular chamber dimension is normal. Right ventricular systolic function is normal. 3. There is no hemodynamically significant valve disease. 4. There is no pulmonary hypertension, estimated right ventricle systolic pressure is 19 mmHg. History/Risk Factors Tobacco Use: Never History/Risk Factors chest pain, palpitations, MVP. Procedure(s): Complete two-dimensional, color flow and Doppler transthoracic echocardiogram is performed. Left Ventricle Left ventricular chamber size, wall thickness, systolic and diastolic function are normal with no regional wall motion abnormalities with an estimated ejection fraction of 60-65%. Right Ventricle Right ventricular chamber dimension is normal. Right ventricular systolic function is normal. Left Atria Left atrial chamber is normal with a left atrial volume index of 25 ml/m2 by BP MOD. Right Atria Right atrial chamber dimension is normal. Atrial Septum Intact interatrial septum visualized by color Doppler and 2D imaging. Aortic Valve The aortic valve is poorly visualized. There is no aortic valve sclerosis. There is no aortic valve stenosis with a peak velocity of 1.2 m/s, mean gradient of 3 mmHg, and aortic valve area of 3.2 cm2. There is no aortic valve regurgitation. Pulmonic Valve The pulmonic valve is not well visualized. There is no pulmonic valve stenosis. There is no pulmonic regurgitation. Mitral Valve The mitral valve has normal leaflets. There is no mitral valve stenosis. There is no mitral valve regurgitation. Tricuspid Valve The tricuspid valve leaflets are normal. There is no significant tricuspid valve stenosis. There is trace tricuspid valve regurgitation. There is no pulmonary hypertension, estimated right ventricle systolic pressure is 19 mmHg. Pericardium/Pleural The pericardium appears normal. There is no pericardial effusion. Inferior Vena Cava Normal inferior vena cava with >50% collapse upon inspiration consistent with normal right atrial pressure. Aorta The aortic measurements are indexed to age and body surface area. The aortic root is normal measuring 2.2 cm with an index of 1.4 cm/m2. The proximal ascending aorta is normal measuring 2.5 cm with an index of 1.6 cm/m2. Wall Motion Scoring Wall Motion Scoring Index: 1.00 Left Ventricular Outflow Tract ---- Name Value Normal ---- LVOT 2D ---- LVOT Diameter 2.0 cm LVOT Doppler ---- LVOT Peak Velocity 1.1 m/s LVOT Mean Gradient 2 mmHg LVOT VTI 28 cm LVOT VTI/AV VTI Ratio 1.0 LVOT Stroke Volume 88 ml LVOT Stroke Index 56.66 ml/m2 Pulmonic Valve ---- Name Value Normal ---- PV Doppler ---- PV Peak Velocity 0.93 m/s PV Mean Gradient 2 mmHg PV VTI 24 cm PV Regurgitation Doppler ---- CT Peak End Diastolic Velocity 88 cm/s Mitral Valve ---- Name Value Normal ---- MV Doppler ---- MV Peak Velocity 1.17 m/s MV Mean Gradient 1 mmHg MV VTI 32 cm MV Decel [place] 266 cm/s2 MV PHT 54 ms MV Area (PHT) 4.1 cm2 4.0-5.0 MV Area (Cont Eq VTI) 2.8 cm2 MV Area Index (Cont Eq VTI) 1.77 cm2/m2 MV Diastolic Function ---- MV E Peak Velocity 1 m/s MV A Peak Velocity 0 m/s MV E/A 3.1 MV Decel Time 187 ms MV Annular TDI ---- MV Septal e' Velocity 11.1 cm/s >=8.0 MV Septal a' Velocity 7.0 cm/s MV E/e' (Septal) 9.5 <=8.0 MV A/a' (Septal) 4.9 MV Lateral e' Velocity 17.7 cm/s >=10.0 MV Lateral a' Velocity 6.1 cm/s MV E/e' (Lateral) 5.9 <=8.0 MV A/a' (Lateral) 5.6 MV e' Average 14.40 MV a' Average 6.5 MV E/e' (Average) 7.7 MV A/a' (Average) 5.3 Tricuspid Valve ---- Name Value Normal ---- TV Regurgitation Doppler ---- TR Peak Velocity 2.01 m/s Estimated PAP/RSVP ---- RA Pressure 3 mmHg <=5 PA Systolic Pressure 19 mmHg <=36 RV Systolic Pressure 19 mmHg <36 Aorta ---- Name Value Normal ---- Ascending Aorta ---- Ao Root Diameter (2D) 2.2 cm 2.7-3.3 Ao Root Diam Index (2D) 1.4 cm/m2 1.6-2.0 Prox Asc Ao Diameter 2.5 cm 2.3-3.1 Prox Asc Ao Diameter Index 1.6 cm/m2 1.3-1.9 Venous ---- Name Value Normal ---- IVC/SVC ---- IVC Diameter (Exp 2D) 1.6 cm <=2.1 Aortic Valve ---- Name Value Normal ---- AV Doppler ---- AV Peak Velocity 1.2 m/s AV Mean Gradient 3 mmHg AV VTI 28 cm AV Area (Cont Eq VTI) 3.2 cm2 AV Area Index (Cont Eq VTI) 2 cm2/m2 AV Area (Cont Eq Vince) 2.8 cm2 AV Area Index (Cont Eq Vince) 2 cm2/m2 LVOT Vmax/AV Vmax 0.91 LVOT VTI/AV VTI Ratio 1.0 AV Regurgitation 2D ---- LVOT Area 3.1 cm2 Ventricles ---- Name Value Normal ---- LV Dimensions 2D/MM ---- IVS Diastolic Thickness (2D) 0.7 cm 0.6-0.9 LVID Diastole (2D) 4.5 cm 3.8-5.2 LVIW Diastolic Thickness (2D) 0.7 cm 0.6-0.9 LVID Systole (2D) 2.9 cm 2.2-3.5 LVOT Diameter 2.0 cm LV Mass (2D Cubed) 96.18 g 67.00-162.00 LV Mass Index (2D Cubed) 62 g/m2 43-95 Relative Wall Thickness (2D) 0.31 <=0.42 LV Fractional Shortening/Ejection Fraction 2D/MM ---- LV Fractional Shortening (2D) 36 % 27-45 LV EF (2D Teicholz) 66 % 54-74 LV Diastolic Volume (4C MOD) 60 ml LV Systolic Volume (4C MOD) 23 ml LV EF (4C MOD) 61 % LV Diastolic Volume (2C MOD) 64 ml LV Systolic Volume (2C MOD) 25 ml LV EF (2C MOD) 60 % LV Diastolic Volume (BP MOD) 64 ml 46-106 LV Diastolic Volume Index (BP MOD) 41 ml/m2 29-61 LV Systolic Volume (BP MOD) 25 ml 14-42 LV Systolic Volume Index (BP MOD) 16 ml/m2 8-24 LV EF (BP MOD) 61 % 55-70 LV Diastolic Length (4C) 6.2 cm LV Systolic Length (4C) 5.2 cm LV End Diastolic Volume (BP A-L) 66 ml LV End Systolic Volume (BP A-L) 25 ml LV EF (BP A-L) 63 % LV Stroke Volume (4C MOD) 36 ml LV SI (4C MOD) 23.38 ml/m2 RV Dimensions 2D/MM ---- RV Basal Diastolic Dimension 2.6 cm 2.5-4.1 RV Mid-Cavity Diastolic Dimension 2.6 cm 1.9-3.5 TAPSE 2.3 cm >=1.7 RV Systolic Function ---- RV s' Velocity 0.1 m/s 0.1-0.2 Atria ---- Name Value Normal ---- LA Dimensions ---- LA Area (4C) 15.0 cm2 LA Length (4C) 4.9 cm LA Area (2C) 15.8 cm2 LA Length (2C) 4.8 cm LA Volume (4C MOD) 36 ml LA Volume (2C MOD) 42 ml LA Volume (4C A-L) 39 ml LA Volume (2C A-L) 44 ml LA Volume (BP A-L) 42 ml LA Volume Index (BP A-L) 27 ml/m2 <=34 LA Volume (BP MOD) 39 ml LA Volume Index (BP MOD) 25 ml/m2 16-34 RA Dimensions ---- RA Systolic Major [place] Length (4C) 4.22 cm <=5.30 RA Area (4C) 12.9 cm2 <=18.0 RA Area (4C) Index 8 cm2/m2 RA ESV (4C MOD) 29 ml 15-27 RA ESV Index (4C MOD) 19 ml/m2 <=27 Report Signatures Finalized by Pedro Lloyd MD on 04/18/2020 02:36 PM [facility] ECG 12-LEADon 04-10-2020 Atrial Rate [facility] P [place] [facility] P-R Interval [facility] Q-T Interval [facility] Q-T Interval (corrected) [facility] QRS Duration [facility] QTC Calculation (Bezet) [facility] R [place] [facility] T [place] [facility] Ventricular Rate [facility] COVID-19, MOLECULARon 2019 INTERNAL CONTROL (ABBOT ID) Pass Normal [facility] Comment on above: Order Comment: No Fl u SARS-COV-2 (ENRIQUE ID) Not Detected Normal Not Detected [facility] Comment on above: Order Comment: No Fl u COVID-19, Molecularon 2019 Internal Control Pass [facility] Interpretation and review of laboratory results Normal [facility] SARS-CoV-2 Not Detected Not Detected [facility] Ear cerum removalon 12-01-19 Left ear irrigation completed. Large amount of cerumen removed from left ear TM visible. Tolerated well. Tonja Storey CNP notified of completion [facility] Vital Signs Date Time Vital Sign Value Performing Clinician Faci lity 06-03-2022 14:57-0400 Body height 165.1 cm Tierra Plascencia CNP Work Phone: [facility] 06-03-2022 14:57-0400 Body mass index (BMI) [Ratio] 24.1 kg/m2 Tierra Plascencia CNP Work Phone: [facility] 06-03-2022 14:57-0400 Body temperature 98.91 [degF] Tierra Plascencia CNP Work Phone: [facility] 06-03-2022 14:57-0400 Body weight 65.68 kg Tierra Plascencia [employer]TER Work Phone: [facility] 06-03-2022 14:57-0400 Diastolic blood pressure 71 mm[Hg] Tierra Plascencia [employer] Work Phone: [facility] 06-03-2022 14:57-0400 Heart rate 86 /min Tierra Plascencia [employer] Work Phone: [facility] 06-03-2022 14:57-0400 Respiratory rate 14 /min Tierra Plascencia [employer] Work Phone: [facility] 06-03-2022 14:57-0400 SaO2% (BldA) [Mass fraction] 96 % Tierra Plascencia [employer] Work Phone: [facility] 06-03-2022 14:57-0400 Systolic blood pressure 108 mm[Hg] Tierra Plascencia [employer] Work Phone: [facility] 09-22-2020 13:04-0400 Body mass index (BMI) [Ratio] 19.5 kg/m2 Jeffrey Abarca MD Work Phone: [facility] 09-22-2020 13:04-0400 Body weight 53.16 kg Jeffrey Abarca MD Work Phone: [facility] 09-22-2020 13:04-0400 Diastolic blood pressure 72 mm[Hg] Jeffrey Abarca MD Work Phone: [facility] 09-22-2020 13:04-0400 Heart rate 52 /min Jeffrey Abarca MD Work Phone: [facility] 09-22-2020 13:04-0400 Systolic blood pressure 112 mm[Hg] Jeffrey Abarca MD Work Phone: [facility] 09-12-2020 08:07-0400 Body height 165.1 cm Tierra Plascencia [employer] Work Phone: [facility] 09-12-2020 08:07-0400 Body mass index (BMI) [Ratio] 19.65 kg/m2 Tierra Plascencia [employer] Work Phone: [facility] 09-12-2020 08:07-0400 Body temperature 98.6 [degF] Tierra Plascencia [employer] Work Phone: [facility] 09-12-2020 08:07-0400 Body weight 53.57 kg Tierra Plascencia [employer] Work Phone: [facility] 09-12-2020 08:07-0400 Diastolic blood pressure 71 mm[Hg] Tierra Plascencia [employer] Work Phone: [facility] 09-12-2020 08:07-0400 Heart rate 70 /min Tierra Plascencia [employer] Work Phone: [facility] 09-12-2020 08:07-0400 Respiratory rate 16 /min Tierra Plascencia [employer] Work Phone: [facility] 09-12-2020 08:07-0400 SaO2% (BldA) [Mass fraction] 98 % Tierra Plascencia [employer] Work Phone: [facility] 09-12-2020 08:07-0400 Systolic blood pressure 109 mm[Hg] Teirra Plascencia [employer] Work Phone: [facility] 08-23-2020 14:29-0400 Body mass index (BMI) [Ratio] 17.75 kg/m2 Tierra Plascencia [employer] Work Phone: [facility] 08-23-2020 14:29-0400 Body temperature 99.19 [degF] Tierra Plascencia [employer] Work Phone: [facility] 08-23-2020 14:29-0400 Body weight 49.9 kg Tierra Plascencia [employer] Work Phone: [facility] 08-23-2020 14:29-0400 Diastolic blood pressure 71 mm[Hg] Tierra Plascencia [employer] Work Phone: [facility] 08-23-2020 14:29-0400 Heart rate 90 /min Tierra Plascencia [employer] Work Phone: [facility] 08-23-2020 14:29-0400 Respiratory rate 16 /min Tierra Plascencia [employer] Work Phone: [facility] 08-23-2020 14:29-0400 SaO2% (BldA) [Mass fraction] 97 % Tierra Plascencia [employer] Work Phone: [facility] 08-23-2020 14:29-0400 Systolic blood pressure 112 mm[Hg] Tierra Plascencia [employer] Work Phone: [facility] 04-10-2020 11:06-0500 BMI (Body Mass Index) 18.82 kg/m2 Tierra Plascencia [facility] 04-10-2020 11:06-0500 Body Temperature 98.8 [degF] Tierra Plascencia [facility] 04-10-2020 11:06-0500 Body weight 52.89 kg Tierraduy Plascencia [facility] 04-10-2020 11:06-0500 BP Diastolic 79 mm[Hg] Tierraduy Plascencia [facility] 04-10-2020 11:06-0500 BP Systolic 105 mm[Hg] Tierraduy Plascencia [facility] 04-10-2020 11:06-0500 Height 167.6 cm Tierraduy Plascencia [facility] 04-10-2020 11:06-0500 Pulse (Heart Rate) 81 /min Tierra [facility] 04-10-2020 11:06-0500 Pulse Oximetry 97 % Tierraduy Plascencia [facility] 04-10-2020 11:06-0500 Respiratory Rate 16 /min Tierraduy Plascencia [facility] 12-31-2019 10:15-0500 BMI (Body Mass Index) 20.18 kg/m2 Julien [facility] 12-31-2019 10:15-0500 Body Temperature 98.2 [degF] Julien [facility] 12-31-2019 10:15-0500 Body weight 56.7 kg [facility] 12-31-2019 10:15-0500 Height 167.6 cm [facility] 12-31-2019 10:15-0500 Pulse (Heart Rate) 109 /min [facility] 12-31-2019 10:15-0500 Pulse Oximetry 100 % [facility] 12-31-2019 10:15-0500 Respiratory Rate 16 /min [facility] 10-20-2019 15:48-0400 BMI (Body Mass Index) 20.14 kg/m2 Tierraduy Plascencia [facility] 10-20-2019 15:48-0400 Body Temperature 98.71 [degF] Tierra Plascencia [facility] 10-20-2019 15:48-0400 Body weight 54.88 kg Tierraduy Plascencia [facility] 10-20-2019 15:48-0400 BP Diastolic 62 mm[Hg] Tierraduy Plascencia [facility] 10-20-2019 15:48-0400 BP Systolic 95 mm[Hg] Tierraduy Plascencia [facility] 10-20-2019 15:48-0400 Height 165.1 cm Tierraduy Plascencia [facility] 10-20-2019 15:48-0400 Pulse (Heart Rate) 55 /min Tierraduy Plascencia [facility] 10-20-2019 15:48-0400 Pulse Oximetry 97 % Tierraduy Plascencia [facility] 10-20-2019 15:48-0400 Respiratory Rate 16 /min Tierraduy Plascencia [facility] 11-30-2018 13:49-0400 BMI (Body Mass Index) 21.31 kg/m2 [facility] 11-30-2018 13:49-0400 Body Temperature 99.1 [degF] Tonja [facility] 11-30-2018 13:49-0400 Body weight 59.88 kg Tonja [facility] 11-30-2018 13:49-0400 BP Diastolic 78 mm[Hg] Tonja [facility] 11-30-2018 13:49-0400 BP Systolic 111 mm[Hg] Tonja Storey [facility] 11-30-2018 13:49-0400 Height 167.6 cm Tonja [facility] 11-30-2018 13:49-0400 Pulse (Heart Rate) 72 /min Tonja [facility] 11-30-2018 13:49-0400 Pulse Oximetry 98 % Tonja [facility] 11-30-2018 13:49-0400 Respiratory Rate 12 /min Tonja [facility] Encounters Encounter Date Encounter Type Care Provider Facility Start: 12-28-2024 End: 12-28-2024 ambulatory DENILSON SUMMERS Facility:[facility] Start: 12-23-2024 End: 12-23-2024 ambulatory EILEEN BARROS Facility:[facility] Start: 12-14-2024 End: 12-14-2024 ambulatory HALLE KRAFT Facility:[facility] Start: 12-07-2024 End: 12-07-2024 ambulatory STANLEY MURILLO Facility:[facility] Start: 11-23-2024 End: 11-23-2024 ambulatory RADHARABIA CHIDI Facility:[facility] Start: 11-08-2024 End: 11-08-2024 ambulatory HALLE KRAFT Facility:[facility] Start: 11-08-2024 End: 11-08-2024 ambulatory [facility] Facility:[facility] Start: 09-24-2024 End: 10-01-2024 Telephone encounter Self OB/Gynecology Comment on above: [facility] (Initial OB RN CC pool/) Start: 06-07-2023 Documentation procedure Nereida Solorzano MD Work Phone: [facility] Start: 06-03-2022 End: 06-03-2022 ambulatory [facility] Start: 06-03-2022 End: 06-03-2022 Office outpatient visit 10 minutes Tierra Plascencia [employer] Work Phone: [facility] Comment on above: Need for malaria pro phylaxis (Primary Dx) Start: 10-05-2020 Orders Only Nereida Mcneal RN [facility] Comment on above: Ovarian mass, left ( Primary Dx) Start: 09-22-2020 End: 09-26-2020 [facility] Start: 09-22-2020 End: 09-22-2020 Office outpatient new 30 minutes Jeffrey Abarca MD Work Phone: [facility] Comment on above: Ovarian mass, left ( Primary Dx) Start: 09-12-2020 End: 09-12-2020 Office outpatient visit 15 minutes Tierra Plascencia [employer] Work Phone: [facility] Comment on above: Ovarian mass, left ( Primary Dx); Nausea Start: 09-10-2020 End: 09-11-2020 Emergency department patient visit [facility] Start: 08-23-2020 End: 08-27-2020 ambulatory [facility] Start: 08-23-2020 End: 08-23-2020 Office outpatient visit 25 minutes Tierra Plascencia [employer] Work Phone: [facility] Comment on above: Chest congestion (Pr imary Dx) Start: 08-23-2020 End: 08-24-2020 [facility] Start: 08-23-2020 End: 08-23-2020 Subsequent hospital visit by physician Tierra Plascencia CNP Work Phone: [facility] Comment on above: Arrived Start: 08-17-2020 End: 08-17-2020 Office outpatient visit 25 minutes Tierra Haileegabriela Plascencia [employer] Work Phone: [facility] Comment on above: Chest congestion (Pr imary Dx) Start: 04-18-2020 [facility] Start: 04-18-2020 End: 04-18-2020 Subsequent hospital visit by physician Tierra Plascencia Work Phone: [facility] Comment on above: Abnormal EKG Start: 04-10-2020 End: 04-10-2020 Office outpatient visit 25 minutes Tierra Lea Stephanie Work Phone: [facility] Comment on above: Palpitations (Primar y Dx); Abnormal EKG; Gastroesophageal reflux disease, unspecified whether esophagitis present; Anxiety Start: 12-31-2019 End: 12-31-2019 Patient encounter procedure TIERRA PLASCENCIA [facility] Start: 12-31-2019 End: 12-31-2019 Office outpatient visit 25 minutes Julien Coronado Work Phone: [facility] Comment on above: Suspected Covid-19 V irus Infection (Primary Dx); Upper respiratory tract infection, unspecified type Start: 10-20-2019 End: 10-20-2019 Patient encounter procedure TIERRA PLASCENCIA [facility] Start: 10-20-2019 End: 10-20-2019 Office outpatient visit 25 minutes Tierra Lea Stephanie Work Phone: [facility] Comment on above: Infection of toenail (Primary Dx) Start: 11-30-2018 End: 11-30-2018 Office outpatient visit 15 minutes Tonja Storey Work Phone: [facility] Vick Comment on above: Difficulty hearing, left (Primary Dx); Left ear impacted cerumen Procedures Date Procedure Procedure Detail Performing Clinician Start: 11-08-2024 Antibody screen CARLOS BARROS Comment on above: Order Comment: Speci men Type: BLOOD SPECIMEN Ordering Facility: [facility] Address: [address] [place] [address] Performed By: #### T SPN #### [facility] CLIA [id number] [address] [place] [address] Start: 08-23-2020 Radiologic exam ches t 2 views iTerra Plascencia BROOMCORN SORTER Work Phone: Start: 04-18-2020 Echocardiography Tierra Plascencia Work Phone: Start: 04-10-2020 12 lead ECG Tierra Plascencia Work Phone: Start: 12-31-2019 COVID-19, MOLECULAR Pat jaime Coronado Work Phone: Start: 10-20-2019 Adult depression scr eening assessment Tierra Plascencia Start: 11-30-2018 EAR CERUMEN REMOVAL Jodi Storey Work Phone: Plan of Treatment Date Care Activity Detail Author Start: 10-19-2023 Influenza vaccination Influenz a Vaccine (Season Ended) [facility] Start: 10-18-2022 COVID-19 Vaccine ( season) COVID-19 Vaccine ( season) [facility] Start: 10-18-2022 Influenza vaccination Sequenti al Influenza Vaccine (Season Ended) [facility] Start: 10-19-2020 Adolescent depressio n screening assessment Depression Screening (PHQ9) [facility] Start: 10-19-2020 Depression screening using PHQ-9 (Patient Health Questionnaire 9) score [facility] Start: 10-18-2020 Influenza vaccination Sequenti al Influenza Vaccine (#1) [facility] Start: 10-17-2020 End: 10-17-2020 Patient encounter procedure [facility] Start: 08-23-2020 End: 08-23-2020 Patient encounter procedure 08/23/2020 Office Visit Primary Care Tierra Plascencia, EL[place] [address] [place] [address] [phone] [facility] Start: 08-23-2020 End: 08-23-2020 Patient encounter procedure 08/23/2020 Appointment Radiology Tierra Plascencia CNP [address] [place] [address] [phone] [facility] Start: 08-16-2020 Influenza vaccinatio n given Sequential Influenza Vaccine (#1) [facility] Comment on above: Postponed from 10/18 (Patient Refused) Start: 10-30-2019 History and physical examination, annual for health maintenance Wellness Visit [facility] Start: 10-19-2019 Influenza vaccinatio n given Sequential Influenza Vaccine (#1) [facility] Start: 2018 Screening for malign ant neoplasm of cervix Pap Smear [facility] Start: 10-18-2016 Screening for Chlamy sharon trachomatis Chlamydia Screening [facility] Start: 01-31-2016 Vaccination for andra n papillomavirus HPV Vaccines (2 - 3-dose series) [facility] Start: 11-01-2015 Hepatitis C antibody , confirmatory test Hepatitis C Screening [facility] Start: 11-01-2015 Hepatitis C screening Hepatitis C Sc reening [facility] Start: 2013 COVID-19 Vaccine (1 of 2) COVID-19 Vaccine (1 of 2) [facility] Start: 2012 HIV screening HIV Screening [facility] Start: 2012 Vaccination for andra n papillomavirus HPV VACCINES (1 - Female 3-dose series) [facility] Start: 2009 COVID-19 Vaccine (1) COVID-19 Vaccin e (1) [facility] Start: 2000 History and physical examination, annual for health maintenance Wellness Visit [facility] Start: 04-30-1998 COVID-19 Vaccine (#1) COVID-19 Vacci ne (#1) [facility] Start: 1997 Screening for Chlamy sharon trachomatis Chlamydia Screening [facility] Start: 1997 Screening for malign ant neoplasm of cervix PAP SMEAR [facility] Start: 1997 [facility]anus [facility] Covid-19/Influenza O rder Algorithm No Flu Covid-19/Influenza Order Algorithm No Flu Microbiology Routine Suspected Covid-19 Virus Infection Upper respiratory tract infection, unspecified type Ordered: 12/31/2019 [facility] Comment on above: Ordered: 12/31/2019 End: 08-17-2021 Standard chest X-ray XR Chest AP/PA and LAT Imaging Routine Chest congestion 1 Occurrences starting 08/17/2020 until 08/17/2021 [facility] Comment on above: 1 Occurrences starti ng 08/17/2020 until 08/17/2021 End: 10-05-2021 US Pelvic Transabdominal and Transvaginal US Pelvic Transabdominal and Transvaginal Imaging Routine Ovarian mass, left 1 Occurrences starting 10/05/2020 until 10/05/2021 [facility] Work Phone: Comment on above: 1 Occurrences starti ng 10/05/2020 until 10/05/2021 Immunizations Immunization Date Immunization Notes Care Provider Fa [facility] 11-30-2018 influenza virus vacc ine, unspecified formulation Nereida Solorzano MD Work Phone: [facility] 01-03-2016 hepatitis A vaccine, pediatric/adolescent dosage, 2 dose schedule Tonja [facility] 01-03-2016 Human Papillomavirus 9-valent vaccine [facility] 01-03-2016 meningococcal polysa ccharide (groups A, C, Y and W-135) diphtheria toxoid conjugate vaccine (MCV4P) Tonja [facility] 01-03-2016 HPV, unspecified formulation Tierra morse [facility] Payers Date Payer Category Payer Medicaid [facility] [id number] 2022 Unknown [id number] 2022 Unknown [id number] 2022 Unknown [facility] MEDI JONES PLAN [place] EMPLOYEE PLAN - PREFERRED CONTIGO [id number] 2022-Present [phone] [address] [place] [address] [id number] 2018 Unknown [facility] MEDI JONES PLAN [employer] PREFERRED - ASSOCIATE PLAN xxxxxxxxx 2018-Present xxxxxxxxx [id number] 2018 Unknown [id number] 2018 Unknown [id number] 1997 Unknown [id number] 1997 Unknown [id number] 1997 Unknown [id number] 1997 Unknown [id number] 1997 Unknown [id number] 1997 Unknown [id number] 1997 Unknown [id number] 1969 Unknown [id number] Social History Date Type Detail Facility Start: 11-30-2018 End: 06-03-2022 Tobacco smoking status NHIS Never smoker [facility] Start: 11-30-2018 Alcohol intake Ex-drinker (finding) [facility] Start: 1997 [facility] Start: 10-26-2019 End: 06-03-2022 Tobacco use and exposure Never used [facility] Start: 10-26-2019 End: 06-10-2022 Alcohol intake Lifetime non-drinker (finding) [facility] Start: 10-20-2019 End: 04-10-2020 History SDOH Alcohol Frequency 1 [facility] Start: 10-20-2019 End: 04-10-2020 History SDOH Alcohol Std Drinks 99 [facility] Start: 10-20-2019 End: 04-10-2020 History SDOH Social Connections Phone 5 [facility] Start: 10-20-2019 End: 04-10-2020 History SDOH Social Connections Get Together 4 [facility] Start: 10-20-2019 End: 04-10-2020 History SDOH IPV Fear 2 [facility] Start: 05-24-2022 End: 06-03-2022 Exposure to SARS-CoV-2 (event) Not sure [facility] Start: 10-20-2019 End: 04-10-2020 History of Social function [facility] Start: 10-20-2019 End: 04-10-2020 Humiliation, Afraid, Rape, and Kick questionnaire [HARK] [facility] Within the last year , have you been afraid of your partner or ex-partner? No [facility] Start: 09-24-2024 How often do you att end judaism or yazidi services? Not asked [facility] How often to you hav e a drink containing alcohol? Never [facility] How hard is it for y ou to pay for the very basics like food, housing, medical care, and heating Not very hard [facility] (I/We) worried halley er (my/our) food would run out before (I/we) got money to buy more. Never true [facility] Start: 11-30-2018 Gender identity Identifies as female gender (finding) [facility] Start: 11-30-2018 Sexual orientation Heterosexual (fin dheeraj) [facility] Tobacco smoking stat us NHIS Tobacco smoking consumption unknown [facility] Clinical Notes 08-17-2020 to 12-23-2024 Telephone Encounter - Eileen Fair RN - 10/01/2024 3:16 PM EDTTelephone Encounter - Eileen Fair RN - 10/01/2024 3:16 PM EDTTelephone Encounter - Eileen Fair RN - 10/01/2024 2:37 PM EDT Note Date & Type Note Facility 12-23-2024 Note HNO ID: [id number] Author: MARIALUISA SAMS MA Service: ? Author Type: Application Support Developer Type: Progress Notes Filed: 12/23/2024 10:33 Note Text: POPULATION HEALTH NAVIGATION OUTREACH Action/FYI Called and spoke to patient and updated quality assurance practice manager to PCP/OB Reason for Outreach Medicaid OB/Peds Care Gaps due: N/A Patient Contacted: Spoke to patient/parent/or legal guardian Patient identified by name and : Yes Medicaid OB/Peds actions taken: /Canal Structure Operator added Navigation Signature: Marialuisa Sams MA December 23, 2024 10:31 AM [facility] 12-23-2024 Note Patient Outreach (NE TNAV) LAURIE ESCOBAR ([id number]) 1995 F Date Time Provider Department 12/23/24 MARIALUISA SAMS During your visit today, we recorded the following information about you: Marialuisa Sams MA 12/23/2024 10:33 AM Signed POPULATION HEALTH NAVIGATION OUTREACH Action/FYI Called and spoke to patient and updated quality assurance practice manager to PCP/OB Reason for Outreach Medicaid OB/Peds Care Gaps due: N/A Patient Contacted: Spoke to patient/parent/or legal guardian Patient identified by name and : Yes Medicaid OB/Peds actions taken: /Canal Structure Operator added Navigation Signature: Marialuisa Sams MA December 23, 2024 10:31 AM Allergies As of Date: 12/23/2024 Noted Allergy Reaction AMOXICILLIN 01/03/2016 4 - Hives 2 - Rash Date Reviewed: 12/14/2024 Reviewed by: Rakesh Clark LPN - Fully Assessed Reason for Visit: Population Health Navigation Outreach [3910] Cmt: to PCP/OB Prescriptions as of 12/23/2024 - omeprazole (PRILOSEC) 20 mg capsule Take 20 mg by mouth once daily. - Vitamin w/ Iron (PNV NO. 72, W/ IRON,) 27 mg iron- 1 mg Take 1 tablet by mouth once daily. Problem List As Of Date 12/23/2024 Noted Resolved with care elsewhere in third*11/08/2024 Supervision of normal (HCC) [Z34.90] 11/08/2024 Polyhydramnios affecting (HCC) [O40.9*11/23/2024 36 weeks gestation of (HCC) [Z3A.36] 12/14/2024 Encounter Status:Closed by MARIALUISA SAMS on 12/23/24 [facility] 11-08-2024 Note HNO ID: [id number] Author: HALLE KRAFT APRN.CNM Service: ? Author Type: Slag Expander Type: Progress Notes Filed: 11/08/2024 09:45 Note Text: INITIAL OB ASSESSMENT HPI: Laurie is a 29 year old White Female here to establish Obstetrical Care. Patient's last menstrual period was 04/01/2024. from OB Dating Form. was planned OB History Gravida2 Para1 Term1 Preterm0 AB0 Living1 SAB0 IAB0 Ectopic0 Multiple0 Live Births1 Previous history: Prior : No History of 4th degree laceration: No History of shoulder dystocia: No History of Hypertensive disorders including pre-eclampsia or gestational hypertension: No History of gestational diabetes: No Patient's Risk Screening for delivery: Have you had a prior tejada between 20w and 36w6d? No How many pregnancies have you had before? 1 Did you have a previous baby with a GBS Infection? No Please select all that apply for any prior : N/A MEDICAL/PSYCHOSOCIAL HISTORY: History of hemorrhage or bleeding concerns: No Thyroid Disease: No History of chronic hypertension: No History of pre-existing diabetes: No No results found for: ABORHD BMI 26.22 kg/(m2) Last Pap: History of abnormal pap: No Prior treatment for cervical dysplasia: N/A. Last HPV: History of STDs: N/A Partner History of STDs: None Did you have a partner with Herpes? NO Tobacco use: No E-Cigarette/Vaping Use: No Caffeine use: Yes Drug use: No Alcohol use: No Multivitamin with Folic acid: Yes Would refuse blood transfusion if medically necessary: No Social Needs: How often does this describe you? I don't have enough money to pay my bills: Never Within the past 12 months, have you worried that your food would run out before you had money to buy more? Never In the past 12 months, has lack of reliable transportation kept you from going to medical appointments or work, or from getting things needed for daily living? Never In the past 12 months, have you had any concerns about having a place to live, or about the condition or quality of your housing? Never Would you like more information on any of the following (please check all that apply)? 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 No Do you have a history of abuse or trauma that may impact your experience? No Are you currently employed? Yes Depression/Anxiety Screening: denies symptoms of depression. OB Depression and Anxiety Screening- This Encounter Feeling down, depressed, or hopeless: Not at all Little interest or pleasure in doing things: Not at all Feeling nervous, anxious, or on edge Not at all Not being able to stop or control worrying Not at all Anxiety Pre-Screening Total (If >/= 3 additional questions will be reviewed) 0 Genetic Screening: Partner present: No Patient verbalized knowledge of partner family health history: Yes Do you or your partner have any personal or family history of defects not previously discussed: No Do you have history of a complicated by anomaly, genetic condition, or demise: No Preeclampsia Risk Screening: Screening for prevention of preeclampsia: High risk factors: None Moderate risk ractors: None OB Risk Screening: Completed, no positive findings documented. 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 No past surgical history on file. Current Outpatient Medications Medication Sig Dispense Refill Vitamin w/ Iron (PNV NO. 72, W/ IRON,) 27 mg iron- 1 mg Take 1 tablet by mouth once daily. calcium carbonate (TUMS PO) Take by mouth. No current facility-administered medications for this visit. Allergies As of Date: 11/08/2024 Allergen Noted Reaction AMOXICILLIN 01/03/2016 Hives and Rash Fully Assessed 11/08/2024 Does patient have penicillin allergy: Yes, plan for allergy testing. REVIEW OF SYSTEMS: GENERAL: Negative for: Fever or Chills and Positive for: Fatigue HEENT: Negative for: Headache, Impaired Vision, Ringing in Ears, Nosebleeds NECK: Negative for: Swelling, Pain, Stiffness RESPIRATORY: Negative for: Cough, Shortness of breath, Wheezing GASTROINTESTINAL: Positive for: Heartburn MUSCULOSKELETAL: Negative for: Muscle or joint pain, stiffness, Joint swelling NEUROLOGIC/PSYCHIATRIC: Negative for: Weakness, Paralysis, Numbness, Tingling, Tremor, Anxiety, Depression, Memory loss SKIN: Negative for: Rash, Itching GENITOURINARY: Negative for: vaginal itching, vaginal discharge, hematuria or dysuria and Positive for: urinary frequency SENSITIVE EXAM: Sensitive exam not performed. PHYSICAL EXAM: BP 108/62 Ht 5' 5.5 (1.66m) Wt 160 lb (72.6kg) LMP 04/01/2024 BMI 26.21 kg/(m2). GENERAL: pleasant in no apparent distress DERMA (more content not included)... [facility] 10-01-2024 Telephone encounter Note See correspondence. Closing encounter. [facility] 10-01-2024 Miscellaneous Notes See correspondence. Closing encounter. Sent patient My Chart message. Patient just signed up for [employer], she is asking if you are able to send the questions through there due to the barriers of her being able to receive calls where she is located. Please advise. Charline Rome October 01, 2024 2:22 PM Call placed to patient to triage for new OB appt. No answer, LVM that I would call try her back next week. Patient calling in wanting to transfer her OB care to [facility]. Patient is currently in [place] and has been receiving care over at one of their facilities. Patient is unsure of the name but states she is able to bring records with her when she comes to her appt. Patient [place] country on [place], and she is currently 25 weeks . Patient states when she receives the call from the nurse coordinator she will not be able to answer due to her location, however she will be able to call right back. Patient states it is okay to leave a detailed message. Please review and advise. Charline Rome September 24, 2024 4:16 PM documented in this encounter [facility] 10-01-2024 Telephone encounter Note Sent patient My Chart message. [facility] 10-01-2024 Telephone encounter Note Patient just signed up for [employer], she is asking if you are able to send the questions through there due to the barriers of her being able to receive calls where she is located. Please advise. Charline Rome October 01, 2024 2:22 PM [facility] 09-24-2024 Telephone encounter Note Call placed to patient to triage for new OB appt. No answer, LVM that I would call try her back next week. [facility] 09-24-2024 Telephone encounter Note Patient calling in wanting to transfer her OB care to [facility]. Patient is currently in [place] and has been receiving care over at one of their facilities. Patient is unsure of the name but states she is able to bring records with her when she comes to her appt. Patient will be back [place] the country on [place], and she is currently 25 weeks . Patient states when she receives the call from the nurse coordinator she will not be able to answer due to her location, however she will be able to call right back. Patient states it is okay to leave a detailed message. Please review and advise. Charline Rome September 24, 2024 4:16 PM [facility] 06-07-2023 History of Presen t illness Narrative Cms call: patient with chronic migraines and increase in frequency. No acute symptoms at this time. She spoke to an logging contractor nurse already and is ok with the next steps. Can f/u with PCP in the office documented in this encounter [facility] 06-10-2022 Evaluation + Plan note Associated Problem(s): Need for malaria prophylaxis Please contact the office with the name of the medication your son was prescribed. If this comes in an adult dosage, I will send that to the pharmacy. [facility] 06-10-2022 Miscellaneous Notes Associated Problem(s): Need for malaria prophylaxis Please contact the office with the name of the medication your son was prescribed. If this comes in an adult dosage, I will send that to the pharmacy. documented in this encounter [facility] 06-03-2022 History of Presen t illness Narrative Images from the original note were not included. OFFICE VISIT PROGRESS NOTE Laurie Escobar is a 26 y.o. female with a past medical history of Patient Active Problem List Diagnosis Gastroesophageal reflux disease Abnormal EKG Palpitations Anxiety Chest congestion Nausea Ovarian mass, left Need for malaria prophylaxis who presents to the office today for travel medications. Leaving June 24 for [place], will be in [facility] end of July which is what the malaria medical is needed for. Patient states that her son was given medication for malaria from [facility]. It was discussed with the patient that anti-malaria medications typically are not prescribed for breast feeding mothers, however, if the medication that was prescribed for her son is also made for adults I will prescribe that medication. Patient voiced understanding. HPI Health Maintenance Topic Date Due Tetanus: Every 10yrs Never done Chlamydia Screening Never done Pap Smear Never done COVID-19 Vaccine (1) Never done HIV Screening Never done Hepatitis C Screening Never done HPV Vaccines (2 - 3-dose series) 01/31/2016 Wellness Visit 10/30/2019 Depression Screening (PHQ-2/9) 10/19/2020 Sequential Influenza Vaccine (Season Ended) 2022 Pneumococcal Vaccine: Ped or At-Risk Aged Out The following portions of the patient's history were reviewed and updated as appropriate: allergies, current medications and problem list. Family History Problem Relation Age of Onset Heart disease Father Lung cancer Paternal Grandfather No Known Problems Mother No Known Problems Sister Multiple sclerosis Maternal Grandfather No Known Problems Sister Social History Socioeconomic History Marital status: Tobacco Use Smoking status: Never Smokeless tobacco: Never Vaping Use Vaping status: Never Used Substance and Sexual Activity Alcohol use: Never Drug use: Never Sexual activity: Yes Partners: Male Social History Narrative Merged History Encounter Social Determinants of Health Financial Resource Strain: Low Risk (04/10/2020) Overall Financial Resource Strain (CARDIA) Difficulty of Paying Living Expenses: Not very hard Food Insecurity: No Food Insecurity (04/10/2020) Hunger Vital Sign Worried About Running Out of Food in the Last Year: Never true Ran Out of Food in the Last Year: Never true Transportation Needs: No Transportation Needs (04/10/2020) PRAPARE - Transportation Lack of Transportation (Medical): No Lack of Transportation (Non-Medical): No Social Connections: Unknown (04/10/2020) Social Connection and Isolation Panel [NHANES] Frequency of Communication with Friends and Family: More than three times a week Frequency of Social Gatherings with Friends and Family: Three times a week Attends [employer] Services: Not asked Active Member of Clubs or Organizations: Not asked Attends Club or Organization Meetings: Not asked Marital Status: Not asked Past Surgical History: Procedure Laterality Date APPENDECTOMY APPENDECTOMY 2006 Allergies Allergen Reactions Amoxicillin Hives Amoxicillin Rash Patient's Medications New Prescriptions ATOVAQUONE-PROGUANIL (MALARONE) 250-100 MG PER TABLET Start 2 days prior to entering a malaria-endemic area, continue throughout the stay and for 7 days after returning . Previous Medications OMEPRAZOLE (PRILOSEC) 10 MG CAPSULE VITAMIN WITH CA-IRON-FA 27-1 MG TAB Take 1 (one) tablet by mouth daily . Modified Medications No medications on file Discontinued Medications ALBUTEROL (VENTOLIN HFA) 90 MCG/ACTUATION INHALER Inhale 2 (two) puffs every 6 (six) hours as needed for wheezing, shortness of breath or cough . MECLIZINE (ANTIVERT) 25 MG TABLET Take 1 (one) tablet (25 mg total) by mouth 3 (three) times a day as needed for nausea . ONDANSETRON (ZOFRAN) 8 MG TABLET Take 1 (one) tablet (8 mg total) by mouth every 8 (eight) hours as needed for nausea . Review of Systems Review of Systems Constitutional: Negative for activity change, appetite change and fatigue. Respiratory: Negative for cough and shortness of breath. Cardiovascular: Negative for chest pain and palpitations. Neurological: Negative for dizziness, facial asymmetry, light-headedness and headaches. Psychiatric/Behavioral: Negative for agitation. The patient is not nervous/anxious. Vitals: 06/03/22 1457 BP: 108/71 BP Location: Right arm Patient Position: Sitting BP Cuff Size: Adult Pulse: 86 Resp: 14 Temp: 98.9 F (37.2 C) TempSrc: Temporal SpO2: 96% Weight: 65.7 kg (144 lb 12.8 oz) Height: 5' 5 BP Readings from Last 3 Encounters: 06/03/22 108/71 09/22/20 112/72 09/12/20 109/71 Wt Readings from Last 3 Encounters: 06/03/22 65.7 kg (144 lb 12.8 oz) 09/22/20 53.2 kg (117 lb 3.2 oz) 09/12/20 53.6 kg (118 lb 1.6 oz) Body mass index is 24.1 kg/m . Physical Exam Physical Exam Vitals reviewed. Constitutional: Appearance: Normal appearance. She is well-developed. HENT: Head: Normocephalic. Right Ear: External ear normal. Left Ear: External ear normal. Nose: Nose normal. Eyes: General: Lids are normal. Pulmonary: Effort: Pulmonary effort is normal. Musculoskeletal: General: Normal range of motion. Skin: General: Skin is warm and dry. Neurological: General: No focal deficit present. Mental Status: She is alert and oriented to person, place, and time. Coordination: Coordination is intact. Gait: Gait is intact. Psychiatric: Attention and Perception: Attention normal. Mood and Affect: Mood normal. Speech: Speech normal. Behavior: Behavior normal. Behavior is cooperative. Thought Content: Thought content normal. Cognition and Memory: Cognition normal. Judgment: Judgment normal. OARRS/NARxCHECK Report Received and Assessed: No data found Date controlled substance agreement signed: No data found Date of last drug screen: No data found Functional Assessment: No data found Assessment/Plan Problem List Items Addressed This Visit Other Need for malaria prophylaxis - Primary Please contact the office with the name of the medication your son was prescribed. If this comes in an adult dosage, I will send that to the pharmacy. Goals None For any new medications prescribed today, patient was educated about indications for the medication, how to take the medication and potential side effects of the medications. Electronically signed by: Tierra Plascencia C.N.P 06/10/22 3:14 PM documented in this encounter [facility] 09-26-2020 Instructions Tierra Plascencia, BROOMCORN SORTER - 09/26/2020 12:33 PM EDT Images from the original note were not included. Functional Ovarian Cyst: Care Instructions Overview A functional ovarian cyst is a fluid-filled sac that forms on the ovary. A sac normally forms during ovulation to hold a maturing egg. Usually the sac goes away after the egg is released. But if the egg is not released, or if the sac closes up after the egg is released, the sac can swell up with fluid. This forms a functional cyst. These ovarian cysts are different than ovarian growths caused by other problems, such as cancer. Most functional ovarian cysts cause no symptoms and go away on their own. Some cause mild pain. Others can cause severe pain when they break or bleed. Follow-up care is a hou part of your treatment and safety. Be sure to make and go to all appointments, and call your doctor if you are having problems. It's also a good idea to know your test results and keep a list of the medicines you take. How can you care for yourself at home? Use heat, such as a hot water bottle, a heating pad set on low, or a warm bath, to relax tense muscles and relieve cramping. Be safe with medicines. Take pain medicines exactly as directed. ? If the doctor gave you a prescription medicine for pain, take it as prescribed. ? If you are not taking a prescription pain medicine, ask your doctor if you can take an [id number]-[id number] medicine. Avoid constipation. Make sure you drink enough fluids and include fruits, vegetables, and fiber in your diet each day. Constipation does not cause ovarian cysts, but it may make you feel more uncomfortable. When should you call for help? Call your doctor now or seek immediate medical care if: You have severe vaginal bleeding. You have new or worse belly or pelvic pain. Watch closely for changes in your health, and be sure to contact your doctor if: You have unusual vaginal bleeding. You do not get better as expected. Where can you learn more? Log into your personal health record on h [email or web address] a nd enter?I547 i n the Education box to learn more about Functional Ovarian Cyst: Care Instructions. Current as of: March 30, 2020 Content Version: 12.9 [employer]. Care instructions adapted under license by your healthcare professional. If you have questions about a medical condition or this instruction, always ask your healthcare professional. [employer] disclaims any warranty or liability for your use of this information. documented in this encounter [facility] 09-26-2020 Miscellaneous Notes Associated Problem(s): Nausea I would like you to start taking Zofran as needed for your nausea. It should help reduce the symptoms you are dealing with within 30 minutes of taking the medication. Please let me know if this medication does not work for you. documented in this encounter [facility] 09-22-2020 History of Presen t illness Narrative Subjective Patient ID: Laurie Escobar is a 24 y.o. female. New patient here for evaluation of a left ovarian cyst seen recently on pelvic US. Patient has been experiencing some abdominal pain/discomfort, dizziness, nausea on and off for past several months. During the evaluation she was found to have a 5.5 x 3.9 x 2.8 cm hypoechoic structure in the left ovary. She states her menses are fairly regular, not painful, minimal cramping noted. She denies dyspareunia, dysmenorrhea, btb, urinary symptoms. She can not take hormonal control due to issues with the estrogen. The following portions of the patient's history were reviewed and updated as appropriate: allergies, current medications, past family history, past medical history, past social history, past surgical history and problem list. Review of Systems Constitutional: Positive for fatigue. Negative for appetite change and fever. HENT: Negative for nosebleeds. Eyes: Negative for photophobia. Respiratory: Negative for cough and shortness of breath. Cardiovascular: Negative for chest pain and leg swelling. Gastrointestinal: Positive for nausea. Negative for abdominal pain, constipation, diarrhea and vomiting. Endocrine: Negative for cold intolerance and polydipsia. Genitourinary: Negative for difficulty urinating, dysuria, frequency and urgency. Musculoskeletal: Negative for joint swelling. Skin: Negative for rash. Neurological: Positive for light-headedness. Negative for dizziness. Hematological: Does not bruise/bleed easily. Psychiatric/Behavioral: Negative for suicidal ideas. All other systems reviewed and are negative. Objective Physical Exam Constitutional: Appearance: She is well-developed. Pulmonary: Effort: Pulmonary effort is normal. Abdominal: Palpations: Abdomen is soft. There is no mass. Tenderness: There is no abdominal tenderness. Musculoskeletal: General: Normal range of motion. Skin: General: Skin is warm and dry. Neurological: Mental Status: She is alert and oriented to person, place, and time. Psychiatric: Behavior: Behavior normal. Thought Content: Thought content normal. Judgment: Judgment normal. Assessment/Plan: Diagnoses and all orders for this visit: Ovarian mass, left Images in Epic were reviewed, records reviewed. The lesion does appear that it could be a hemorrhagic CL cyst, endometrioma or even a Dermoid cyst. We discussed each possibility in detail. We discussed that if it is a hemorrhagic cyst, It should be gone by the time of a repeat US. We discussed the recommendations by radiologist to repeat the US in 6 weeks. We also discussed that we could do a laparoscopy with cystectomy at this time. We reviewed the options and she would prefer to wait and repeat the US at the 6 week interval, then if the lesion is still present we will plan on doing a laparoscopy with cystectomy with possible LSO. We briefly discussed risks, benefits of surgery. I gave her precautions to return sooner than the repeat US is she developed sudden onset of pain, increasing abdominal distention, abnormal vaginal bleeding or felt unusual. She is asymptomatic at this time but understands the lesion may persist or grow in the interval. She will be scheduled for a repeat US in about 4 weeks for reevaluation. documented in this encounter [facility] 09-12-2020 History of Presen t illness Narrative OFFICE VISIT PROGRESS NOTE Laurie Escobar is a 24 y.o. female with a past medical history of Patient Active Problem List Diagnosis Gastroesophageal reflux disease Abnormal EKG Palpitations Anxiety Chest congestion Nausea Ovarian mass, left who presents to the office today for an Emergency Department follow up. Patient was seen at [facility] on 09/10/2020 with a chief complaint of dizziness. However, also stated that she had diarrhea, and nausea as well. An ultrasound of the pelvic area was completed and patient was found to have a 5cm heterogeneous hypoechoic lesion within the left ovary. For follow up a referral was placed today, for the patient to be seen by Obstetrics and Gynecology as close follow up is recommended. Patient as also given Zofran while in the Emergency Department and this help significantly with her nausea. HPI Health Maintenance Topic Date Due Tetanus: Every 10yrs Never done Chlamydia Screening Never done Pap Smear Never done Wellness Visit Never done COVID-19 Vaccine (1) Never done HIV Screening Never done Hepatitis C Screening Never done HPV Vaccines (2 - 3-dose series) 01/31/2016 Depression Screening (PHQ9) 10/19/2020 Sequential Influenza Vaccine (1) 10/18/2020 Pneumococcal Vaccine: Ped or At-Risk Aged Out The following portions of the patient's history were reviewed and updated as appropriate: allergies, current medications and problem list. Family History Problem Relation Age of Onset Heart disease Father Lung cancer Paternal Grandfather No Known Problems Mother No Known Problems Sister Multiple sclerosis Maternal Grandfather No Known Problems Sister Social History Socioeconomic History Marital status: Spouse name: Not on file Number of children: Not on file Years of education: Not on file Highest education level: Not on file Occupational History Not on file Tobacco Use Smoking status: Never Smoker Smokeless tobacco: Never Used Vaping Use Vaping Use: Never used Substance and Sexual Activity Alcohol use: Never Drug use: Never Sexual activity: Yes Partners: Male Other Topics Concern Not on file Social History Narrative Merged History Encounter Social Determinants of Health Financial Resource Strain: Low Risk Difficulty of Paying Living Expenses: Not very hard Food Insecurity: No Food Insecurity Worried About Running Out of Food in the Last Year: Never true Ran Out of Food in the Last Year: Never true Transportation Needs: No Transportation Needs Lack of Transportation (Medical): No Lack of Transportation (Non-Medical): No Physical Activity: Days of Exercise per Week: Minutes of Exercise per Session: Stress: Feeling of Stress : Social Connections: Unknown Frequency of Communication with Friends and Family: More than three times a week Frequency of Social Gatherings with Friends and Family: Three times a week Attends Roman Catholic Services: Not asked Active Member of Clubs or Organizations: Not asked Attends Club or Organization Meetings: Not asked Marital Status: Not asked Past Surgical History: Procedure Laterality Date APPENDECTOMY APPENDECTOMY 2006 Allergies Allergen Reactions Amoxicillin Hives Amoxicillin Rash Patient's Medications New Prescriptions MECLIZINE (ANTIVERT) 25 MG TABLET Take 1 (one) tablet (25 mg total) by mouth 3 (three) times a day as needed for nausea . ONDANSETRON (ZOFRAN) 8 MG TABLET Take 1 (one) tablet (8 mg total) by mouth every 8 (eight) hours as needed for nausea . Previous Medications ALBUTEROL (VENTOLIN HFA) 90 MCG/ACTUATION INHALER Inhale 2 (two) puffs every 6 (six) hours as needed for wheezing, shortness of breath or cough . OMEPRAZOLE (PRILOSEC) 10 MG CAPSULE Modified Medications No medications on file Discontinued Medications DOXYCYCLINE HYCLATE (VIBRA-TABS) 100 MG TABLET Take 1 (one) tablet (100 mg total) by mouth 2 (two) times a day . Review of Systems Review of Systems Constitutional: Negative for activity change, appetite change and fatigue. Respiratory: Negative for cough and shortness of breath. Cardiovascular: Negative for chest pain and palpitations. Genitourinary: Positive for pelvic pain. Neurological: Negative for dizziness, facial asymmetry, light-headedness and headaches. Psychiatric/Behavioral: Negative for agitation. The patient is not nervous/anxious. Vitals: 09/12/20 0807 BP: 109/71 BP Location: Right arm Patient Position: Sitting BP Cuff Size: Adult Pulse: 70 Resp: 16 Temp: 98.6 F (37 C) TempSrc: Temporal SpO2: 98% Weight: 53.6 kg (118 lb 1.6 oz) Height: 5' 5 BP Readings from Last 3 Encounters: 09/22/20 112/72 09/12/20 109/71 09/11/20 98/61 Wt Readings from Last 3 Encounters: 09/22/20 53.2 kg (117 lb 3.2 oz) 09/12/20 53.6 kg (118 lb 1.6 oz) 09/10/20 53.5 kg (118 lb) Body mass index is 19.65 kg/m . Physical Exam Physical Exam Vitals reviewed. Constitutional: Appearance: Normal appearance. She is well-developed. HENT: Head: Normocephalic. Right Ear: External ear normal. Left Ear: External ear normal. Nose: Nose normal. Eyes: General: Lids are normal. Cardiovascular: Rate and Rhythm: Normal rate and regular rhythm. Heart sounds: Normal heart sounds. Pulmonary: Effort: Pulmonary effort is normal. Breath sounds: Normal breath sounds. Musculoskeletal: General: Normal range of motion. Skin: General: Skin is warm and dry. Neurological: General: No focal deficit present. Mental Status: She is alert and oriented to person, place, and time. Coordination: Coordination is intact. Gait: Gait is intact. Psychiatric: Attention and Perception: Attention normal. Mood and Affect: Mood normal. Speech: Speech normal. Behavior: Behavior normal. Behavior is cooperative. Thought Content: Thought content normal. Cognition and Memory: Cognition normal. Judgment: Judgment normal. OARRS/NARxCHECK Report Received and Assessed: No data found Date controlled substance agreement signed: No data found Date of last drug screen: No data found Functional Assessment: No data found The ASCVD Risk score (Keiser IZABELLA Jr., et al., 2013) failed to calculate for the following reasons: The 2013 ASCVD risk score is only valid for ages 40 to 79 Assessment/Plan Problem List Items Addressed This Visit Other Nausea I would like you to start taking Zofran as needed for your nausea. It should help reduce the symptoms you are dealing with within 30 minutes of taking the medication. Please let me know if this medication does not work for you. Relevant Medications meclizine (ANTIVERT) 25 mg tablet Ovarian mass, left - Primary Relevant Orders Ambulatory referral to Obstetrics / Gynecology Goals None For any new medications prescribed today, patient was educated about indications for the medication, how to take the medication and potential side effects of the medications. documented in this encounter [facility] 08-29-2020 Miscellaneous Notes Associated Problem(s): Chest congestion At your appointment today you prescribed an antibiotic. Please take this medication as directed, and complete the entire treatment. Please note that some antibiotics can cause an upset stomach and/or diarrhea. If you develop an upset stomach while taking the antibiotic, please eat something small when taking this medication. To prevent diarrhea you to take a probiotic which can be found [id number] or eat yogurt twice a day. I have ordered blood work for you to have completed. Please have this completed at your earliest convenience. This blood work will need to be completed while fasting. This means nothing to eat or drink for 10-12 hours prior to having it drawn. You can however, drink water and take medications as ordered during this time. We will contact you with the results when they return to the office. documented in this encounter [facility] 08-29-2020 History of Presen t illness Narrative OFFICE VISIT PROGRESS NOTE Laurie Escobar is a 24 y.o. female with a past medical history of Patient Active Problem List Diagnosis Gastroesophageal reflux disease Abnormal EKG Palpitations Anxiety Chest congestion who presents to the office today for a follow up to her telehealth visit last week. Patient continues to feel ill, dispete antibiotic, prednisone, and an albuterol inhaler. Patient did have a negative COVID test the day prior to her telehealth appointment. X-ray completed this AM was negative for any acute processes. Patient states that yesterday she started with a cough and tasted blood with the cough. Patient states that the cough is a dry hacking cough HPI Health Maintenance Topic Date Due Tetanus: Every 10yrs Never done Chlamydia Screening Never done Pap Smear Never done Wellness Visit Never done COVID-19 Vaccine (1) Never done HIV Screening Never done Hepatitis C Screening Never done HPV Vaccines (2 - 3-dose series) 01/31/2016 Depression Screening (PHQ9) 10/19/2020 Sequential Influenza Vaccine (1) 10/18/2020 Pneumococcal Vaccine: Ped or At-Risk Aged Out The following portions of the patient's history were reviewed and updated as appropriate: allergies, current medications and problem list. Family History Problem Relation Age of Onset Heart disease Father Lung cancer Paternal Grandfather No Known Problems Mother No Known Problems Sister Multiple sclerosis Maternal Grandfather No Known Problems Sister Social History Socioeconomic History Marital status: Spouse name: Not on file Number of children: Not on file Years of education: Not on file Highest education level: Not on file Occupational History Not on file Tobacco Use Smoking status: Never Smoker Smokeless tobacco: Never Used Vaping Use Vaping Use: Never used Substance and Sexual Activity Alcohol use: Never Drug use: Never Sexual activity: Yes Partners: Male Other Topics Concern Not on file Social History Narrative Merged History Encounter Social Determinants of Health Financial Resource Strain: Low Risk Difficulty of Paying Living Expenses: Not very hard Food Insecurity: No Food Insecurity Worried About Running Out of Food in the Last Year: Never true Ran Out of Food in the Last Year: Never true Transportation Needs: No Transportation Needs Lack of Transportation (Medical): No Lack of Transportation (Non-Medical): No Physical Activity: Days of Exercise per Week: Minutes of Exercise per Session: Stress: Feeling of Stress : Social Connections: Unknown Frequency of Communication with Friends and Family: More than three times a week Frequency of Social Gatherings with Friends and Family: Three times a week Attends Roman Catholic Services: Not asked Active Member of Clubs or Organizations: Not asked Attends Club or Organization Meetings: Not asked Marital Status: Not asked Past Surgical History: Procedure Laterality Date APPENDECTOMY APPENDECTOMY 2006 Allergies Allergen Reactions Amoxicillin Hives Amoxicillin Rash Patient's Medications New Prescriptions DOXYCYCLINE HYCLATE (VIBRA-TABS) 100 MG TABLET Take 1 (one) tablet (100 mg total) by mouth 2 (two) times a day . Previous Medications ALBUTEROL (VENTOLIN HFA) 90 MCG/ACTUATION INHALER Inhale 2 (two) puffs every 6 (six) hours as needed for wheezing, shortness of breath or cough . Modified Medications No medications on file Discontinued Medications AZITHROMYCIN (ZITHROMAX) 500 MG TABLET Take 1 (one) tablet (500 mg total) by mouth daily . BUSPIRONE (BUSPAR) 5 MG TABLET Take 1 (one) tablet (5 mg total) by mouth 3 (three) times a day as needed (anxiety) . METHYLPREDNISOLONE (MEDROL DOSEPACK) 4 MG TABLET follow package directions . PANTOPRAZOLE (PROTONIX) 40 MG TABLET Take 1 (one) tablet (40 mg total) by mouth daily . Review of Systems Review of Systems Constitutional: Positive for fatigue. Negative for activity change and appetite change. HENT: Positive for congestion and sore throat. Negative for postnasal drip, rhinorrhea, sinus pressure and sinus pain. Respiratory: Positive for cough and shortness of breath. Cardiovascular: Negative for chest pain and palpitations. Neurological: Negative for dizziness, facial asymmetry, light-headedness and headaches. Psychiatric/Behavioral: Negative for agitation. The patient is not nervous/anxious. Vitals: 08/23/20 1429 BP: 112/71 BP Location: Right arm Patient Position: Sitting BP Cuff Size: Adult Pulse: 90 Resp: 16 Temp: 99.2 F (37.3 C) TempSrc: Temporal SpO2: 97% Weight: 49.9 kg (110 lb) BP Readings from Last 3 Encounters: 08/23/20 112/71 04/10/20 105/79 10/20/19 95/62 Wt Readings from Last 3 Encounters: 08/23/20 49.9 kg (110 lb) 04/10/20 52.9 kg (116 lb 9.6 oz) 12/31/19 56.7 kg (125 lb) Body mass index is 17.75 kg/m . Physical Exam Physical Exam Vitals reviewed. Constitutional: Appearance: Normal appearance. She is well-developed and normal weight. HENT: Head: Normocephalic. Right Ear: External ear normal. Left Ear: External ear normal. Nose: Nose normal. Eyes: General: Lids are normal. Cardiovascular: Rate and Rhythm: Normal rate and regular rhythm. Heart sounds: Normal heart sounds. Pulmonary: Effort: Pulmonary effort is normal. Breath sounds: Normal breath sounds. Musculoskeletal: General: Normal range of motion. Skin: General: Skin is warm and dry. Neurological: General: No focal deficit present. Mental Status: She is alert and oriented to person, place, and time. Coordination: Coordination is intact. Gait: Gait is intact. Psychiatric: Attention and Perception: Attention normal. Mood and Affect: Mood normal. Speech: Speech normal. Behavior: Behavior normal. Behavior is cooperative. Thought Content: Thought content normal. Cognition and Memory: Cognition normal. Judgment: Judgment normal. OARRS/NARxCHECK Report Received and Assessed: No data found Date controlled substance agreement signed: No data found Date of last drug screen: No data found Functional Assessment: No data found The ASCVD Risk score (Keisermele PAREKH Jr., et al., 2013) failed to calculate for the following reasons: The 2013 ASCVD risk score is only valid for ages 40 to 79 Assessment/Plan Problem List Items Addressed This Visit Respiratory Chest congestion - Primary At your appointment today you prescribed an antibiotic. Please take this medication as directed, and complete the entire treatment. Please note that some antibiotics can cause an upset stomach and/or diarrhea. If you develop an upset stomach while taking the antibiotic, please eat something small when taking this medication. To prevent diarrhea you to take a probiotic which can be found [id number] or eat yogurt twice a day. Relevant Medications doxycycline hyclate (VIBRA-TABS) 100 MG tablet Other Relevant Orders CBC and Differential (Completed) Comprehensive Metabolic Panel (Completed) Goals None For any new medications prescribed today, patient was educated about indications for the medication, how to take the medication and potential side effects of the medications. documented in this encounter [facility] 08-22-2020 Miscellaneous Notes Associated Problem(s): Chest congestion Today, I have ordered x-rays for you to have completed at your earliest convenience. We will contact you with results when they return to the office. At that time, if the referral is placed for evaluation and/or treatment or any recommendations are made they will be notified. I have ordered steroids for you to take. Please take these as directed. Please note that this medication can cause you to be hyper/jittery as well as increase her hunger and thirst drive. Please take this medication with food as it can cause an upset stomach. At your appointment today you prescribed an antibiotic. Please take this medication as directed, and complete the entire treatment. Please note that some antibiotics can cause an upset stomach and/or diarrhea. If you develop an upset stomach while taking the antibiotic, please eat something small when taking this medication. To prevent diarrhea you to take a probiotic which can be found [id number] or eat yogurt twice a day. documented in this encounter [facility] 08-17-2020 Instructions Tierra Plascencia CNP - 08/17/2020 4:19 PM EDT Please call Central Scheduling at [phone] to schedule an appoint to have your imaging study scheduled (x-ray, CT scan, or MRI) I have ordered steroids for you to take. Please take these as directed. Please note that this medication can cause you to be hyper/jittery as well as increase her hunger and thirst drive. Please take this medication with food as it can cause an upset stomach. At your appointment today you prescribed an antibiotic. Please take this medication as directed, and complete the entire treatment. Please note that some antibiotics can cause an upset stomach and/or diarrhea. If you develop an upset stomach while taking the antibiotic, please eat something small when taking this medication. To prevent diarrhea you to take a probiotic which can be found gtao-awa-fxjzsei or eat yogurt twice a day. documented in this encounter [facility] 08-17-2020 History of Presen t illness Narrative VIDEO VISIT PROGRESS NOTE Laurie Escobar is a 24 y.o. female with a past medical history of Patient Active Problem List Diagnosis Gastroesophageal reflux disease Abnormal EKG Palpitations Anxiety Chest congestion who presents for a video visit today with complaints of chest congestion Almost 2 weeks chest gets super heavy, and breathing is difficult, a few moments of disorientation 2 weeks ago had a lump on her next, and 2 days ago right jaw bone started to hurt Rapid COVID test negative as of yesterday. This morning had diarrhea, and random stomach aches. Pretty fatigued as well, slept almost all day yesterday. No coughing, temp was 99 yesterday. Some congestion on and off Denies palpations, but is anxious because of the shortness of breath. HPI Health Maintenance Topic Date Due Tetanus: Every 10yrs Never done Chlamydia Screening Never done Pap Smear Never done Wellness Visit Never done COVID-19 Vaccine (1) Never done HIV Screening Never done Hepatitis C Screening Never done HPV Vaccines (2 - 3-dose series) 01/31/2016 Depression Screening (PHQ9) 10/19/2020 Sequential Influenza Vaccine (1) 10/18/2020 Pneumococcal Vaccine: Ped or At-Risk Aged Out The following portions of the patient's history were reviewed and updated as appropriate: allergies, current medications and problem list. Family History Problem Relation Age of Onset Heart disease Father Lung cancer Paternal Grandfather No Known Problems Mother No Known Problems Sister Multiple sclerosis Maternal Grandfather No Known Problems Sister Social History Socioeconomic History Marital status: Spouse name: Not on file Number of children: Not on file Years of education: Not on file Highest education level: Not on file Occupational History Not on file Tobacco Use Smoking status: Never Smoker Smokeless tobacco: Never Used Vaping Use Vaping Use: Never used Substance and Sexual Activity Alcohol use: Never Drug use: Never Sexual activity: Yes Partners: Male Other Topics Concern Not on file Social History Narrative Merged History Encounter Social Determinants of Health Financial Resource Strain: Low Risk Difficulty of Paying Living Expenses: Not very hard Food Insecurity: No Food Insecurity Worried About Running Out of Food in the Last Year: Never true Ran Out of Food in the Last Year: Never true Transportation Needs: No Transportation Needs Lack of Transportation (Medical): No Lack of Transportation (Non-Medical): No Physical Activity: Days of Exercise per Week: Minutes of Exercise per Session: Stress: Feeling of Stress : Social Connections: Unknown Frequency of Communication with Friends and Family: More than three times a week Frequency of Social Gatherings with Friends and Family: Three times a week Attends [employer] Services: Not asked Active Member of Clubs or Organizations: Not asked Attends Club or Organization Meetings: Not asked Marital Status: Not asked Past Surgical History: Procedure Laterality Date APPENDECTOMY APPENDECTOMY 2006 Allergies Allergen Reactions Amoxicillin Hives Amoxicillin Rash Patient's Medications New Prescriptions ALBUTEROL (VENTOLIN HFA) 90 MCG/ACTUATION INHALER Inhale 2 (two) puffs every 6 (six) hours as needed for wheezing, shortness of breath or cough . AZITHROMYCIN (ZITHROMAX) 500 MG TABLET Take 1 (one) tablet (500 mg total) by mouth daily . METHYLPREDNISOLONE (MEDROL DOSEPACK) 4 MG TABLET follow package directions . Previous Medications BUSPIRONE (BUSPAR) 5 MG TABLET Take 1 (one) tablet (5 mg total) by mouth 3 (three) times a day as needed (anxiety) . PANTOPRAZOLE (PROTONIX) 40 MG TABLET Take 1 (one) tablet (40 mg total) by mouth daily . Modified Medications No medications on file Discontinued Medications No medications on file Review of Systems Review of Systems Constitutional: Positive for fatigue. Negative for activity change and appetite change. HENT: Positive for congestion. Respiratory: Positive for cough and shortness of breath. Cardiovascular: Negative for chest pain and palpitations. Gastrointestinal: Positive for abdominal pain and diarrhea. Neurological: Negative for dizziness, facial asymmetry, light-headedness and headaches. Psychiatric/Behavioral: Negative for agitation. The patient is not nervous/anxious. There were no vitals filed for this visit. There is no height or weight on file to calculate BMI. Physical Exam Physical Exam Constitutional: Appearance: Normal appearance. HENT: Nose: Nose normal. Mouth/Throat: Lips: [place]. Pulmonary: Effort: Pulmonary effort is normal. Musculoskeletal: General: Normal range of motion. Cervical back: Normal range of motion. Neurological: General: No focal deficit present. Mental Status: She is alert and oriented to person, place, and time. Psychiatric: Attention and Perception: Attention and perception normal. Mood and Affect: Mood and affect normal. Speech: Speech normal. Behavior: Behavior normal. Behavior is cooperative. Thought Content: Thought content normal. Cognition and Memory: Cognition and memory normal. Judgment: Judgment normal. OARRS/NARxCHECK Report Received and Assessed: No data found Date controlled substance agreement signed: No data found Date of last drug screen: No data found Functional Assessment: No data found The ASCVD Risk score (Derianmele PAREKH Jr., et al., 2013) failed to calculate for the following reasons: The 2013 ASCVD risk score is only valid for ages 40 to 79 Assessment/Plan Problem List Items Addressed This Visit Respiratory Chest congestion - Primary Today, I have ordered x-rays for you to have completed at your earliest convenience. We will contact you with results when they return to the office. At that time, if the referral is placed for evaluation and/or treatment or any recommendations are made they will be notified. I have ordered steroids for you to take. Please take these as directed. Please note that this medication can cause you to be hyper/jittery as well as increase her hunger and thirst drive. Please take this medication with food as it can cause an upset stomach. At your appointment today you prescribed an antibiotic. Please take this medication as directed, and complete the entire treatment. Please note that some antibiotics can cause an upset stomach and/or diarrhea. If you develop an upset stomach while taking the antibiotic, please eat something small when taking this medication. To prevent diarrhea you to take a probiotic which can be found voyu-cyx-hqilgum or eat yogurt twice a day. Relevant Medications azithromycin (ZITHROMAX) 500 MG tablet methylPREDNISolone (MEDROL DOSEPACK) 4 mg tablet albuterol (Ventolin HFA) 90 mcg/actuation inhaler Other Relevant Orders XR Chest AP/PA and LAT Goals None Video Visit [facility] [address] [facility] [address] [place] [id number] Video Visit [facility] 08/17/2020 Tierra Plascencia CNP Provider Location: [facility] office or provider's home Patient Location Syrup Mixer: None Patient Location: Patient's Home Patient: Laurie Escobar Date of : 1995 (24 y.o. female) PCP: Tierra Plascencia CNP Video Visit Consent Statement: I discussed risks, benefits and alternatives of a video visit telemedicine consultation with the patient (and any accompanying persons) including the risks that the patient s personal health details and medical records will be discussed over real-time, synchronous, interactive video/audio/telecommunication technology, the visit will not be recorded without the express consent of both the provider and the patient, and that there are inherent diagnostic limitations compared to cdpn-ru-xqes evaluations. We elected to proceed with the video visit telemedicine consultation. For any new medications prescribed today, patient was educated about indications for the medication, how to take the medication and potential side effects of the medications. documented in this encounter [facility] Evaluation note Diagnosis Chest congestion- Primary Other symptoms involving respiratory system and chest [facility] Chest congestion Other symptoms involving respiratory system and chest [facility] Diagnosis Chest congestion- Primary Other symptoms involving respiratory system and chest [facility] Diagnosis Ovarian mass, left- Primary [facility]* Diagnosis Ovarian mass, left- Primary Nausea Nausea alone [facility] Diagnosis Ovarian mass, left- Primary [facility] Diagnosis Need for malaria prophylaxis- Primary documented in this encounter [facility] Instructions * Patient Instructions* Tonja Storey CNP - 11/30/2018 2:33 PM EDT I have ordered ofloxacin ear drops to use in the event that in the next couple of days you develop pain in the ear (or ears) that was irrigated today. If you should continue to have ear pain after using the eardrops for at least 2 to 3 days, you should get reevaluated. Earwax Blockage: Care Instructions Your Care Instructions Earwax is a natural substance that protects the ear canal. Normally, earwax drains from the ears and does not cause problems. Sometimes earwax builds up and hardens. Earwax blockage (also called cerumen impaction) can cause some loss of hearing and pain. When wax is tightly packed, you will need tohave your doctor remove it. Follow-up care is a hou part of your treatment and safety. Be sure to make and go to all appointments, and call your doctor if you are having problems. It's also a good idea to know your test resultsand keep a list of the medicines you take. How can you care for yourself at home? Do not try to remove earwax with cotton swabs, fingers, or other objects. This can make the blockage worse and damage the eardrum. If your doctor recommends that you try to remove earwax at home: ? Soften and loosen the earwax with warm mineral oil. You also can try hydrogen peroxide mixed withan equal amount of room temperature water. Place 2 drops of the fluid, warmed to body temperature, in the ear two times a day for up to 5 days. ? Once the wax is loose and soft, all that is usually needed to remove it from the ear canal is a gentle, warm shower. Direct the water into the ear, then tip your head to let the earwax drain out. Dry your ear thoroughly with a vice chairman set on low. Hold the dryer several inches from your ear. ? If the warm mineral oil and shower do not work, use an luce-lse-nhpxvkm wax softener. Read and follow all instructions on the label. After using the wax softener, use an ear syringe to gently flushthe ear. Make sure the flushing solution is body temperature. Cool or hot fluids in the ear can cause dizziness. When should you call for help? Call your doctor now or seek immediate medical care if: Pus or blood drains from your ear. Your ears are ringing or feel full. You have a loss of hearing. Watch closely for changes in your health, and be sure to contact your doctor if: You have pain or reduced hearing after 1 week of home treatment. You have any new symptoms, such as nausea or balance problems. Where can you learn more? Log into your personal health record on https://AppUpper - [email or web address].DOZ and enter Q495 in the Education box to learn more about Earwax Blockage: Care Instructions. Current as of: November 09, 2017 Content Version: 12.1 5275-2002 [employer]. Care instructions adapted under license by your healthcare professional. If you have questions about a medical condition or this instruction, always ask your healthcare professional. [employer] disclaims any warranty or liability for your use of this information. documented in this encounter* Patient Instructions* Tierra Plascencia CNP - 10/26/2019 3:26 PM EDT At your appointment today you prescribed an antibiotic. Please take this medication as directed, and complete the entire treatment. Please note that some antibiotics can cause an upset stomach and/ordiarrhea. If you develop an upset stomach while taking the antibiotic, please eat something small when taking this medication. To prevent diarrhea you to take a probiotic which can be found kuwa-uyx-zdicmmw or eat yogurt twicea day. documented in this encounter* Patient Instructions* Julien Coronado CNP - 12/31/2019 11:30 AM EST Upper Respiratory Infection (Cold): Care Instructions Your Care Instructions An upper respiratory infection, or URI, is an infection of the nose, sinuses, or throat. URIs are spread by coughs, sneezes, and direct contact. The common cold is the most frequent kind of URI. The flu and sinus infections are other kinds of URIs. Almost all URIs are caused by viruses. Antibiotics won't cure them. But you can treat most infections with home care. This may include drinking lots of fluids and taking oigy-sri-wjioama pain medicine. You will probably feel better in 4 to 10 days. The doctor has checked you carefully, but problems can develop later. If you notice any problems ornew symptoms, get medical treatment right away. Follow-up care is a hou part of your treatment and safety. Be sure to make and go to all appointments, and call your doctor if you are having problems. It's also a good idea to know your test resultsand keep a list of the medicines you take. How can you care for yourself at home? To prevent dehydration, drink plenty of fluids, enough so that your urine is light yellow or clear like water. Choose water and other caffeine-free clear liquids until you feel better. If you have kidney, heart, or liver disease and have to limit fluids, talk with your doctor before you increase the amount of fluids you drink. Take an sdsx-yaz-zozzcrb pain medicine, such as acetaminophen (Tylenol), ibuprofen (Advil, Motrin),or naproxen (Aleve). Read and follow all instructions on the label. Before you use cough and cold medicines, check the label. These medicines may not be safe for youngchildren or for people with certain health problems. Be careful when taking jjii-nms-nrwmesj cold or flu medicines and Tylenol at the same time. Many ofthese medicines have acetaminophen, which is Tylenol. Read the labels to make sure that you are nottaking more than the recommended dose. Too much acetaminophen (Tylenol) can be harmful. Get plenty of rest. Do not smoke or allow others to smoke around you. If you need help quitting, talk to your doctor about stop-smoking programs and medicines. These can increase your chances of quitting for good. When should you call for help? Call 911 anytime you think you may need emergency care. For example, call if: You have severe trouble breathing. Call your doctor now or seek immediate medical care if: You seem to be getting much sicker. You have new or worse trouble breathing. You have a new or higher fever. You have a new rash. Watch closely for changes in your health, and be sure to contact your doctor if: You have a new symptom, such as a sore throat, an earache, or sinus pain. You cough more deeply or more often, especially if you notice more mucus or a change in the color of your mucus. You do not get better as expected. Where can you learn more? Log into your personal health record on https://AppUpper - ASOt.DOZ and enter K520 in the Education box to learn more about Upper Respiratory Infection (Cold): Care Instructions. Current as of: April 12, 2019 Content Version: 12.6 [employer]. Care instructions adapted under license by your healthcare professional. If you have questions about a medical condition or this instruction, always ask your healthcare professional. [employer] disclaims any warranty or liability for your use of this information. [facility] COVID-19 Post-swabbing Instructions We will do our best to update you as soon as we receive your test results, but if we had to send your test to be run at the lab, you may see the results on Corterahart or receive a call from [facility] before we are able to contact you. You should receive a call from our COVID-19 results provider as soon as possible. If you test POSITIVE for COVID-19: Isolate until: - it has been 10 days since you developed symptoms AND - you have been without a fever (100.4 F) for at least 24 hours without the use of fever reducing medication AND - your symptoms are improving Isolation is when you test positive for COVID-19 and is meant to keep the infected person away fromall others, even in their own home. If you live with others, stay in a specific sick room or area and away from other people or animals, including pets. Use a separate bathroom, if available. Seek emergency medical care immediately if you develop worsening warning signs including: - trouble breathing - persistent pain or pressure in the chest - new confusion - inability to wake or stay awake - bluish lips or face It is not recommended by the CDC to have another COVID-19 test done in order to discontinue isolation or return to work/school. We can provide return to work and school documentation as needed. If you test NEGATIVE for COVID-19: If you are under a 14 day quarantine because of significant exposure defined as close contact with someone that has a laboratory confirmed infection from COVID- 19 or that person was diagnosed by a medical professional, then a negative COVID-19 test does not clear you from the 14 day quarantine. Youwere likely not clinically infectious at the time of the test. This does not mean that you will notget sick and develop symptoms. It is possible that you were in the early phase of the infection at the time of your test and you could be positive later. For these reasons: 1) If the test was due to having symptoms WITH significant exposure, you should remain in quarantine: - for the full 14 days AND - you have been without a fever (100.4 F) for at least 24 hours without the use of fever reducing medication AND - your symptoms are improving If you are unable to separate yourself completely from the COVID-19 positive person (i.e. parent caring for a child), CDC guidelines recommend you quarantine for 24 days (10 days from symptom onset of the COVID positive person PLUS 14 additional days). 2) If the test was due to symptoms WITHOUT significant exposure, you may return to work/school if: - you have been without a fever (100.4 F) for at least 24 hours without the use of fever reducing medication AND - your symptoms are improving When Do I Self-Quarantine? You should quarantine if you have had a significant exposure which is defined as having been in close contact (as defined below) with someone that has a laboratory confirmed infection from COVID-19 or that person was diagnosed by a medical professional. This includes contact within 48 hours prior to when the COVID-19 positive person developed symptoms. - Quarantine is used to keep someone who might have been exposed to COVID-19 away from others. - Quarantine helps prevent spread of disease that can occur before a person knows they are sick or if they are infected with the virus without feeling symptoms. - People in quarantine should stay home, separate themselves from others, monitor their health, andfollow directions from their state or local health department. What counts as close contact? - You were within 6 feet of someone who has COVID-19 for at least 15 minutes - You provided care at home to someone who is sick with COVID-19 - You had direct physical contact with the person (touched, hugged, or kissed them) - You shared eating or drinking utensils - They sneezed, coughed, or somehow got respiratory droplets on you When and How Will I Get Results? Tests performed in the clinic will be available within 15-20 minutes from initiation of test. If your test was sent out to the lab for testing, it could take anywhere from 1-5 days after your specimen is collected. The provider/practice who placed the order for your test will notify you of your results. - If you have an active [employer] account, and your COVID-19 test is negative (not detected), then you will be notified through your [employer] account. You should call the urgent care if you have any further questions. - If your COVID-19 test is positive (detected), you will receive a phone call to discuss your results and answer any questions you might have at that time. Please make sure [facility] has your updated phone number so we can contact you. [facility] will notify the [facility] of any positive results to comply with state regulations. What Happens After I Get Tested if I Develop Worsening COVID-19 Symptoms? All patients should self-quarantine at home until they receive their test results. While self-quarantining, contact your PCP or return to the urgent care if you develop any of the following: - A fever of 103 degrees F (39.4 C) or higher - A fever that lasts more than 3 days without medication - A fever that returns after being gone for more than 24 hours - Chest pain or difficulty breathing - A worsening of current symptoms For work concerns, please contact your employer's HR department. How Do I Self-Quarantine? - Stay home until 14 days after last exposure and maintain social distance (at least 6 feet) from others at all times - Avoid contact with people at higher risk for severe illness from COVID-19 - Self-monitor for symptoms: - Check temperature twice a day - Watch for fever (100.4F or higher), cough, shortness of breath, or other CDC recognized symptoms of COVID-19 If I test positive, what about those with which I have had close contact (household members, partners, close friends, etc)? Anyone with close contact (as defined above) within 48 hours prior to when the COVID-19 positive person developed symptoms should self-quarantine for 14 days as above. What Do I Do If I am Sick? Stay Home: If you are sick, stay home from work, school, public places, and social gatherings Social Distance: maintain 6 feet of distance from other people. Monitor Your Symptoms: If you develop fever, shortness of breath, confusion, or any respiratory symptoms, please notify your doctor immediately Cover Your Cough: Cough and sneeze into your shirt sleeve or inner elbow. Do not cough into your hands or into the air. If available, cough into a tissue and throw it into a trash can. Wash Your Hands: Wash hands often with soap and warm water and/or alcohol based hand mine motor operator, scrubbing your hands for at least 20 seconds. Wash your hands after sneezing or coughing, after going to the bathroom, and before eating or drinking. Wear a Mask: Wear a face mask when around others. Always wear a face mask (if able) if you have to leave your home Don't Touch: avoid touching your eyes, nose, and mouth Don't Share: avoid sharing items with others as they can spread infection Call First: If you do need to seek urgent medical care, call the facility first to let them know you are on your way Other COVID Questions? CDC - https://www.cdc.gov/coronavirus/2019-ncov/index.html - https://www.cdc.gov/coronavirus/2019-ncov/xg-ttd-zdp-sick/quarantine.html [facility] - Website: https://coronavirus.[place].gov/wps/portal/gov/covid-19/home - Hotline: 927-6-LFP-OD (632-892-3803) [facility]: https://blog.DOZ/series/hcdwh-62-vyseajetfmp-toolkit/ Thank you for choosing [facility] for your health care needs today. You will be notified of your result..You will be given further instructions at that time. ER for high fever, shaking chills, vomiting, chest pain, abdominal pain, difficulty breathing or an symptom of concern. documented in this encounter* Patient Instructions* Tierra Plascencia CNP - 05/02/2020 2:36 PM EDT Anxiety Disorder: Care Instructions Your Care Instructions Anxiety is a normal reaction to stress. Difficult situations can cause you to have symptoms such assweaty palms and a nervous feeling. In an anxiety disorder, the symptoms are far more severe. Constant worry, muscle tension, trouble sleeping, nausea and diarrhea, and other symptoms can make normal daily activities difficult or impossible. These symptoms may occur for no reason, and they can affect your work, school, or social life. Medicines, counseling, and self-care can all help. Follow-up care is a hou part of your treatment and safety. Be sure to make and go to all appointments, and call your doctor if you are having problems. It's also a good idea to know your test resultsand keep a list of the medicines you take. How can you care for yourself at home? Take medicines exactly as directed. Call your doctor if you think you are having a problem with your medicine. Go to your counseling sessions and follow-up appointments. Recognize and accept your anxiety. Then, when you are in a situation that makes you anxious, say keke, This is not an emergency. I feel uncomfortable, but I am not in danger. I can keep goingeven if I feel anxious. Be kind to your body: ? Relieve tension with exercise or a massage. ? Get enough rest. ? Avoid alcohol, caffeine, nicotine, and illegal drugs. They can increase your anxiety level and cause sleep problems. ? Learn and do relaxation techniques. See below for more about these techniques. Engage your mind. Get out and do something you enjoy. Go to a funGirl Meets Dress movie, or take a walk or hike. Plan your day. Having too much or too little to do can make you anxious. Keep a record of your symptoms. Discuss your fears with a good friend or family member, or join a support group for people with similar problems. Talking to others sometimes relieves stress. Get involved in social groups, or volunteer to help others. Being alone sometimes makes things seemworse than they are. Get at least 30 minutes of exercise on most days of the week to relieve stress. Walking is a good choice. You also may want to do other activities, such as running, swimming, cycling, or playing tennis or team sports. Relaxation techniques Do relaxation exercises 10 to 20 minutes a day. You can play soothing, relaxing music while you do them, if you wish. Tell others in your house that you are going to do your relaxation exercises. Ask them not to disturb you. Find a comfortable place, away from all distractions and noise. Lie down on your back, or sit with your back straight. Focus on your breathing. Make it slow and steady. Breathe in through your nose. Breathe out through either your nose or mouth. Breathe deeply, filling up the area between your navel and your rib cage. Breathe so that your belly goes up and down. Do not hold your breath. Breathe like this for 5 to 10 minutes. Notice the feeling of calmness throughout your whole body. As you continue to breathe slowly and deeply, relax by doing the following for another 5 to 10 minutes: Tighten and relax each muscle group in your body. You can begin at your toes and work your way up to your head. Imagine your muscle groups relaxing and becoming heavy. Empty your mind of all thoughts. Let yourself relax more and more deeply. Become aware of the state of calmness that surrounds you. When your relaxation time is over, you can bring yourself back to alertness by moving your fingers and toes and then your hands and feet and then stretching and moving your entire body. Sometimes people fall asleep during relaxation, but they usually wake up shortly afterward. Always give yourself time to return to full alertness before you drive a car or do anything that might cause an accident if you are not fully alert. Never play a relaxation tape while you drive a car. When should you call for help? Call 911 anytime you think you may need emergency care. For example, call if: You feel you cannot stop from hurting yourself or someone else. Keep the numbers for these national suicide hotlines: 2-022-177-TALK ( ) and 0-315-MMKBUZK ( ). If you or someone you know talks about suicide or feeling hopeless, get help right away. Watch closely for changes in your health, and be sure to contact your doctor if: You have anxiety or fear that affects your life. You have symptoms of anxiety that are new or different from those you had before. Where can you learn more? Log into your personal health record on https://AppUpper - [email or web address].DOZ and enter P754 in the Education box to learn more about Anxiety Disorder: Care Instructions. Current as of: November 10, 2019 Content Version: 12.7 [employer]. Care instructions adapted under license by your healthcare professional. If you have questions about a medical condition or this instruction, always ask your healthcare professional. [employer] disclaims any warranty or liability for your use of this information. Gastroesophageal Reflux Disease (GERD): Care Instructions Overview Gastroesophageal reflux disease (GERD) is the backward flow of stomach acid into the esophagus. Theesophagus is the tube that leads from your throat to your stomach. A one-way valve prevents the stomach acid from backing up into this tube. But when you have GERD, this valve does not close tightly enough. This can also cause pain and swelling in your esophagus. (This is called esophagitis.) If you have mild GERD symptoms including heartburn, you may be able to control the problem with antacids or sdjg-ehh-lohbwni medicine. You can also make lifestyle changes to help reduce your symptoms. These include changing your diet and eating habits, such as not eating late at night and losing weight. Follow-up care is a hou part of your treatment and safety. Be sure to make and go to all appointments, and call your doctor if you are having problems. It's also a good idea to know your test resultsand keep a list of the medicines you take. How can you care for yourself at home? Take your medicines exactly as prescribed. Call your doctor if you think you are having a problem with your medicine. Your doctor may recommend zlbl-csn-rayxcps medicine. For mild or occasional indigestion, antacids, such as Tums, Gaviscon, Mylanta, or Maalox, may help. Your doctor also may recommend uryg-lpm-jskjqbb acid reducers, such as famotidine (Pepcid AC), cimetidine (Tagamet HB), or omeprazole (Prilosec). Read and follow all instructions on the label. If you use these medicines often, talk with your doctor. Change your eating habits. ? It's best to eat several small meals instead of two or three large meals. ? After you eat, wait 2 to 3 hours before you lie down. ? Chocolate, mint, and alcohol can make GERD worse. ? Spicy foods, foods that have a lot of acid (like tomatoes and oranges), and coffee can make GERD symptoms worse in some people. If your symptoms are worse after you eat a certain food, you may wantto stop eating that food to see if your symptoms get better. Do not smoke or chew tobacco. Smoking can make GERD worse. If you need help quitting, talk to your doctor about stop-smoking programs and medicines. These can increase your chances of quitting for good. If you have GERD symptoms at night, raise the head of your bed 6 to 8 inches by putting the frame on blocks or placing a foam wedge under the head of your mattress. (Adding extra pillows does not work.) Do not wear tight clothing around your middle. Lose weight if you need to. Losing just 5 to 10 pounds can help. When should you call for help? Call your doctor now or seek immediate medical care if: You have new or different belly pain. Your stools are black and tarlike or have streaks of blood. Watch closely for changes in your health, and be sure to contact your doctor if: Your symptoms have not improved after 2 days. Food seems to catch in your throat or chest. Where can you learn more? Log into your personal health record on https://Skillaton.DOZ and enter T927 in the Education box to learn more about Gastroesophageal Reflux Disease (GERD): Care Instructions. Current as of: June 02, 2019 Content Version: 12.7 [employer]. Care instructions adapted under license by your healthcare professional. If you have questions about a medical condition or this instruction, always ask your healthcare professional. [employer] disclaims any warranty or liability for your use of this information. Palpitations: Care Instructions Your Care Instructions Heart palpitations are the uncomfortable sensation that your heart is beating fast or irregularly. You might feel pounding or fluttering in your chest. It might feel like your heart is skipping a beat. Although palpitations may be caused by a heart problem, they also occur because of stress, fatigue,or use of alcohol, caffeine, or nicotine. Many medicines, including diet pills, antihistamines, decongestants, and some herbal products, can cause heart palpitations. Nearly everyone has palpitationsfrom time to time. Depending on your symptoms, your doctor may need to do more tests to try to find the cause of your palpitations. Follow-up care is a hou part of your treatment and safety. Be sure to make and go to all appointments, and call your doctor if you are having problems. It's also a good idea to know your test resultsand keep a list of the medicines you take. How can you care for yourself at home? Avoid caffeine, nicotine, and excess alcohol. Do not take illegal drugs, such as methamphetamines and cocaine. Do not take weight loss or diet medicines unless you talk with your doctor first. Get plenty of sleep. Do not overeat. If you have palpitations again, take deep breaths and try to relax. This may slow a racing heart. If you start to feel lightheaded, lie down to avoid injuries that might result if you pass out and fall down. Keep a record of your palpitations and bring it to your next doctor's appointment. Write down: ? The date and time. ? Your pulse. (If your heart is beating fast, it may be hard to count your pulse.) ? What you were doing when the palpitations started. ? How long the palpitations lasted. ? Any other symptoms. If an activity causes palpitations, slow down or stop. Talk to your doctor before you do that activity again. Take your medicines exactly as prescribed. Call your doctor if you think you are having a problem with your medicine. When should you call for help? Call 911 anytime you think you may need emergency care. For example, call if: You passed out (lost consciousness). You have symptoms of a heart attack. These may include: ? Chest pain or pressure, or a strange feeling in the chest. ? Sweating. ? Shortness of breath. ? Pain, pressure, or a strange feeling in the back, neck, jaw, or upper belly or in one or both shoulders or arms. ? Lightheadedness or sudden weakness. ? A fast or irregular heartbeat. After you call 911, the proof press operator may tell you to chew 1 adult-strength or 2 to 4 low-dose aspirin. Wait for an ambulance. Do not try to drive yourself. You have symptoms of a stroke. These may include: ? Sudden numbness, tingling, weakness, or loss of movement in your face, arm, or leg, especially ononly one side of your body. ? Sudden vision changes. ? Sudden trouble speaking. ? Sudden confusion or trouble understanding simple statements. ? Sudden problems with walking or balance. ? A sudden, severe headache that is different from past headaches. Call your doctor now or seek immediate medical care if: You have heart palpitations and: ? Are dizzy or lightheaded, or you feel like you may faint. ? Have new or increased shortness of breath. Watch closely for changes in your health, and be sure to contact your doctor if: You continue to have heart palpitations. Where can you learn more? Log into your personal health record on [email or web address] and enter R508 in the Education box to learn more about Palpitations: Care Instructions. Current as of: October 18, 2019 Content Version: 12.7 [employer]. Care instructions adapted under license by your healthcare professional. If you have questions about a medical condition or this instruction, always ask your healthcare professional. [employer] disclaims any warranty or liability for your use of this information. documented in this encounter History of Present Illness * Tonja Storey CNP - 11/30/2018 1:51 PM EDT PATIENT NAME: Laurie Ascencio [facility] [address] [place] [id number] : 1995 DATE OF VISIT: 11/30/2018 #: [id number] PROVIDER: Tonja Storey CNP Chief Complaint Patient presents with Ear Fullness left ear SUBJECTIVE 23 y.o. female presents Ear Fullness (left ear) Using q-tip in the left ear this morning and then suddenly couldn't hear. For the past month she has noticed a decreased hearing in the left ear. Ear Fullness There is pain in the left ear. This is a new problem. The current episode started today. The problem occurs constantly. The problem has been unchanged. There has been no fever. The patient is experiencing no pain. Associated symptoms include hearing loss. Pertinent negatives include no abdominal pain, coughing, diarrhea, ear discharge, headaches, rhinorrhea, sore throat or vomiting. She has triednothing for the symptoms. There is no history of a chronic ear infection, hearing loss or a tympanostomy tube. MEDICAL ISSUES History reviewed. No pertinent past medical history. There is no problem list on file for this patient. SOCIAL HISTORY Social History Socioeconomic History Marital status: Single Spouse name: Not on file Number of children: Not on file Years of education: Not on file Highest education level: Not on file Occupational History Not on file Social Needs Financial resource strain: Not on file Food insecurity: Worry: Not on file Inability: Not on file Transportation needs: Medical: Not on file Non-medical: Not on file Tobacco Use Smoking status: Never Smoker Smokeless tobacco: Never Used Substance and Sexual Activity Alcohol use: Not Currently Drug use: Never Sexual activity: Never Lifestyle Physical activity: Days per week: Not on file Minutes per session: Not on file Stress: Not on file Relationships Social connections: Talks on phone: Not on file Gets together: Not on file Attends yazidi service: Not on file Active member of club or organization: Not on file Attends meetings of clubs or organizations: Not on file Relationship status: Not on file Other Topics Concern Not on file Social History Narrative Not on file FAMILY HISTORY History reviewed. No pertinent family history. REVIEW OF SYSTEMS Review of Systems Constitutional: Negative for fever. HENT: Positive for hearing loss. Negative for ear discharge, rhinorrhea and sore throat. Respiratory: Negative for cough. Gastrointestinal: Negative for abdominal pain, diarrhea and vomiting. Neurological: Negative for headaches. MEDICATIONS PRIOR TO VISIT No current outpatient medications on file prior to visit. No current facility-administered medications on file prior to visit. ALLERGIES/INTOLERANCES Allergies Allergen Reactions Amoxicillin Rash OBJECTIVE Vitals: 11/30/18 1349 BP: 111/78 Temp: 99.1 F (37.3 C) Pulse: 72 Resp: 12 SpO2: 98% Body mass index is 21.31 kg/m . 59.9 kg (132 lb) 5' 6 Patient's last menstrual period was 11/23/2018 (exact date). The patient was not asked if she was . Physical Exam Constitutional: She is oriented to person, place, and time. She appears well- developed and well-nourished. HENT: Right Ear: Tympanic membrane and ear canal normal. Nose: Nose normal. No mucosal edema or rhinorrhea. Right sinus exhibits no maxillary sinus tenderness and no frontal sinus tenderness. Left sinus exhibits no maxillary sinus tenderness and no frontalsinus tenderness. Mouth/Throat: Oropharynx is clear and moist and mucous membranes are normal. No posterior oropharyngeal edema or posterior oropharyngeal erythema. Left ear canal occluded with cerumen. Post irrigation, canal patent and tm intact. Patient can hearbetter definitely but still feels like water is in her ear. Eyes: Conjunctivae are normal. Cardiovascular: Normal rate and regular rhythm. Pulmonary/Chest: Effort normal and breath sounds normal. No accessory muscle usage. No respiratory distress. Lymphadenopathy: She has no cervical adenopathy. Neurological: She is alert and oriented to person, place, and time. Skin: Skin is warm and dry. Psychiatric: She has a normal mood and affect. Nursing note and vitals reviewed. PROCEDURE Procedures Results No results found for this or any previous visit (from the past 168 hour(s)). ASSESSMENT/PLAN (expressed as patient instructions): 1. Difficulty hearing, left DISCONTINUED: ofloxacin (FLOXIN) 0.3 % otic solution 2. Left ear impacted cerumen Ear cerum removal Ear cerum removal ofloxacin (FLOXIN) 0.3 % otic solution DISCONTINUED: ofloxacin (FLOXIN) 0.3 % otic solution No follow-ups on file. ADDITIONAL CLINICAL COMMENTS Prescribing ofloxacin ear drops for post irrigation pain if needed. ORDERS PLACED THIS VISIT Orders Placed This Encounter Procedures Ear cerum removal MEDICATION LIST AT END OF VISIT Current Outpatient Medications Medication Sig Dispense Refill ofloxacin (FLOXIN) 0.3 % otic solution Administer 10 (ten) drops to the right ear daily for 7 days . 5 mL 0 No current facility-administered medications for this visit. documented in this encounter* Tierra Plascencia CNP - 10/20/2019 3:57 PM EDT OFFICE VISIT PROGRESS NOTE Laurie Ascencio is a 23 y.o. female with a past medical history of Patient Active Problem List Diagnosis Infection of toenail who presents to the office today for a new patient appointment. Patient is also complaining of a toe infection which is the reason why she made her appointment. Toe infection: new problem left great toe - used gel kit at home, and was told that she had a fungal infection when she was getting her nails done her recent wedding. Patient states roughly 1 week ago she started to develop swelling in the area of the nailbed and cuticle region. This is a continued. Patient states she has been soaking her foot in warm water which is. HPI Health Maintenance Topic Date Due Tetanus: Every 10yrs 1995 Chlamydia Screening 1995 Pap Smear 1995 HIV Screening 2012 Hepatitis C Screening 11/01/2015 HPV Vaccines (2 - 3-dose series) 01/31/2016 Sequential Influenza Vaccine (1) 10/19/2019 Wellness Visit 10/30/2019 Depression Screening (PHQ9) 10/19/2020 The following portions of the patient's history were reviewed and updated as appropriate: allergies, current medications and problem list. Family History Problem Relation Age of Onset Heart disease Father Lung cancer Paternal Grandfather No Known Problems Mother No Known Problems Sister Multiple sclerosis Maternal Grandfather No Known Problems Sister Social History Socioeconomic History Marital status: Spouse name: Not on file Number of children: Not on file Years of education: Not on file Highest education level: Not on file Occupational History Not on file Social Needs Financial resource strain: Not very hard Food insecurity Worry: Never true Inability: Never true Transportation needs Medical: No Non-medical: No Tobacco Use Smoking status: Never Smoker Smokeless tobacco: Never Used Substance and Sexual Activity Alcohol use: Never Frequency: Never Binge frequency: Never Drug use: Never Sexual activity: Yes Partners: Male Lifestyle Physical activity Days per week: Not on file Minutes per session: Not on file Stress: Not on file Relationships Social connections Talks on phone: More than three times a week Gets together: Three times a week Attends yazidi service: Not on file Active member of club or organization: Not on file Attends meetings of clubs or organizations: Not on file Relationship status: Not on file Other Topics Concern Not on file Social History Narrative Merged History Encounter Past Surgical History: Procedure Laterality Date APPENDECTOMY APPENDECTOMY 2006 Allergies Allergen Reactions Amoxicillin Hives Amoxicillin Rash Patient's Medications New Prescriptions DOXYCYCLINE HYCLATE (VIBRA-TABS) 100 MG TABLET Take 1 (one) tablet (100 mg total) by mouth 2 (two) times a day . Previous Medications No medications on file Modified Medications No medications on file Discontinued Medications No medications on file Review of Systems Review of Systems Constitutional: Negative for activity change, appetite change and fatigue. Respiratory: Negative for cough and shortness of breath. Cardiovascular: Negative for chest pain and palpitations. Neurological: Negative for dizziness, facial asymmetry, light-headedness and headaches. Psychiatric/Behavioral: Negative for agitation. The patient is not nervous/anxious. Vitals: 10/20/19 1548 BP: 95/62 BP Location: Right arm Patient Position: Sitting BP Cuff Size: Adult Pulse: (!) 55 Resp: 16 Temp: 98.7 F (37.1 C) TempSrc: Temporal SpO2: 97% Weight: 54.9 kg (121 lb) Height: 5' 5 Body mass index is 20.14 kg/m . Physical Exam Physical Exam Vitals signs reviewed. Constitutional: Appearance: Normal appearance. She is well-developed. HENT: Head: Normocephalic. Right Ear: External ear normal. Left Ear: External ear normal. Nose: Nose normal. Eyes: General: Lids are normal. Cardiovascular: Rate and Rhythm: Normal rate and regular rhythm. Heart sounds: Normal heart sounds. Pulmonary: Effort: Pulmonary effort is normal. Breath sounds: Normal breath sounds. Musculoskeletal: Normal range of motion. Feet: Skin: General: Skin is warm and dry. Neurological: General: No focal deficit present. Mental Status: She is alert and oriented to person, place, and time. Coordination: Coordination is intact. Gait: Gait is intact. Psychiatric: Attention and Perception: Attention normal. Mood and Affect: Mood normal. Speech: Speech normal. Behavior: Behavior normal. Behavior is cooperative. Thought Content: Thought content normal. Cognition and Memory: Cognition normal. Judgment: Judgment normal. OARRS/NARxCHECK Report Received and Assessed: No data found Date controlled substance agreement signed: No data found Date of last drug screen: No data found Functional Assessment: No data found The ASCVD Risk score (Derian IZABELLA Jr., et al., 2013) failed to calculate for the following reasons: The 2013 ASCVD risk score is only valid for ages 40 to 79 Assessment/Plan Problem List Items Addressed This Visit Musculoskeletal and Integument Infection of toenail - Primary At your appointment today you prescribed an antibiotic. Please take this medication as directed, and complete the entire treatment. Please note that some antibiotics can cause an upset stomach and/ordiarrhea. If you develop an upset stomach while taking the antibiotic, please eat something small when taking this medication. To prevent diarrhea you to take a probiotic which can be found eldy-hha-bowdjeo or eat yogurt twicea day. Relevant Medications doxycycline hyclate (VIBRA-TABS) 100 MG tablet Goals None For any new medications prescribed today, patient was educated about indications for the medication, how to take the medication and potential side effects of the medications. Please note: Portions of this chart may have been created with 2threads voice recognition software. Occasional wrong-word or sound-like substitutions may have occurred due to inherent limitations of the voice recognition software. Please read the chart carefully and recognize, using context, where the substitutions have occurred. Depression Screening 10/20/2019 Little interest or pleasure in doing things 0 Feeling down, depressed, or hopeless 0 PHQ-2 Total Score 0 Trouble falling or staying asleep, or sleeping too much 0 Feeling tired or having little energy 0 Poor appetite or overeating 0 Feeling bad about yourself - or that you are a failure or have let yourself or your family down 0 Trouble concentrating on things, such as reading the newspaper or watching television 0 Moving or speaking so slowly that other people could have noticed. Or the opposite - being so fidgety or restless that you have been moving around a lot more than usual 0 Thoughts that you would be better off , or of hurting yourself in some way 0 PHQ-9 Total Score 0 documented in this encounter* Julien Coronado CNP - 12/31/2019 10:30 AM EST Patient Name: [facility] Location: [address] [id number] Date Of : Date Of Visit: 1995 12/31/2019 MRN# Provider: [id number] Julien Coronado CNP Chief Complaint Patient presents with Sore Throat symptoms started Mon Cough Diarrhea Shortness of Breath Assessment & Plan 1. Suspected Covid-19 Virus Infection Covid-19/Influenza Order Algorithm No Flu COVID-19, Molecular 2. Upper respiratory tract infection, unspecified type Covid-19/Influenza Order Algorithm No Flu COVID-19, Molecular No follow-ups on file. Medical Decision Making Client is pleasant, non-toxic in NAD. COVID pending. Standard work note. Additional Clinical Comments See AVS Influenza Immunization Declines [facility] COVID-19 Mask Status: Does the patient have classic COVID-19 symptoms? Yes, the patient has COVID-19 symptoms, the patient WAS wearing a mask during the visit, I (the provider) WAS wearing full PPE (N95 mask, gown, gloves, and face shield) during the visit. and Automobile Visit was utilized for this patient visit. Patient read general consent to treat, and was then asked if he/she had any questions, which were all answered satisfactorily, and patient consented verbally. Consent obtained at registration. Subjective 24 y.o. female presents with Sore Throat (symptoms started Fri), Cough, Diarrhea, and Shortness of Breath (Original note lost when the computer shut down. Charted what I can remember.)Client with ST, coughwith shortness of breath and diarrhea onset Friday. Not or nursing. No tobacco use. No loss of taste or smell. URI This is a new problem. There has been no fever. Associated symptoms include congestion, coughing, diarrhea and headaches. Pertinent negatives include no chest pain, nausea, rash, sore throat, vomiting or wheezing. Treatments tried: Theraflu. The treatment provided no relief. Review Of Systems Review of Systems Constitutional: Positive for chills and diaphoresis. Negative for activity change, appetite change,fatigue and fever. HENT: Positive for congestion. Negative for sore throat. Respiratory: Positive for cough and shortness of breath. Negative for chest tightness and wheezing. Cardiovascular: Negative for chest pain. Gastrointestinal: Positive for diarrhea. Negative for nausea and vomiting. Genitourinary: Normal urination. Musculoskeletal: Positive for myalgias. Skin: Negative for rash. Neurological: Positive for headaches. Medical History Past Medical History: Diagnosis Date Appendicitis 2005 Past Surgical History: Procedure Laterality Date APPENDECTOMY APPENDECTOMY 2006 Patient Active Problem List Diagnosis Infection of toenail Social History Social History Tobacco Use Smoking status: Never Smoker Smokeless tobacco: Never Used Substance Use Topics Alcohol use: Never Frequency: Never Binge frequency: Never Drug use: Never Family History Family History Problem Relation Age of Onset Heart disease Father Lung cancer Paternal Grandfather No Known Problems Mother No Known Problems Sister Multiple sclerosis Maternal Grandfather No Known Problems Sister Objective Physical Exam Pulse (!) 109 Temp 98.2 F (36.8 C) (Oral) Resp 16 Ht 5' 6 Wt 56.7 kg (125 lb) LMP 12/01/2019 (Exact Date) SpO2 100% No BMI 20.18 kg/m Vision/Hearing Exam:No exam data present Physical Exam Vitals signs and nursing note reviewed. Exam conducted with a fishing instructor present. Constitutional: General: She is not in acute distress. Appearance: Normal appearance. She is not ill-appearing, toxic-appearing or diaphoretic. HENT: Head: Normocephalic and atraumatic. Right Ear: Tympanic membrane, ear canal and external ear normal. Left Ear: Tympanic membrane, ear canal and external ear normal. Nose: Nose normal. Mouth/Throat: Mouth: Mucous membranes are moist. Pharynx: Oropharynx is clear. Cardiovascular: Rate and Rhythm: Normal rate and regular rhythm. Heart sounds: Normal heart sounds. Pulmonary: Effort: Pulmonary effort is normal. Breath sounds: Normal breath sounds. Skin: General: Skin is warm and dry. Neurological: Mental Status: She is alert and oriented to person, place, and time. Psychiatric: Mood and Affect: Mood normal. Procedure Notes Procedures Results Recent Results (from the past 168 hour(s)) COVID-19, Molecular Collection Time: 12/31/19 12:06 PM Specimen: Nasopharyngeal; Swab Result Value Ref Range SARS-CoV-2 Not Detected Not Detected Internal Control Pass No orders to display Orders Placed This Visit Orders Placed This Encounter Procedures Covid-19/Influenza Order Algorithm No Flu COVID-19, Molecular Medication List At End Of Visit Current Outpatient Medications Medication Sig Dispense Refill doxycycline hyclate (VIBRA-TABS) 100 MG tablet Take 1 (one) tablet (100 mg total) by mouth 2 (two) times a day . (Patient not taking: Reported on 12/31/2019 .) 20 tablet 0 No current facility-administered medications for this visit. Patient Instructions Upper Respiratory Infection (Cold): Care Instructions Your Care Instructions An upper respiratory infection, or URI, is an infection of the nose, sinuses, or throat. URIs are spread by coughs, sneezes, and direct contact. The common cold is the most frequent kind of URI. The flu and sinus infections are other kinds of URIs. Almost all URIs are caused by viruses. Antibiotics won't cure them. But you can treat most infections with home care. This may include drinking lots of fluids and taking msox-vru-cdkbvhy pain medicine. You will probably feel better in 4 to 10 days. The doctor has checked you carefully, but problems can develop later. If you notice any problems ornew symptoms, get medical treatment right away. Follow-up care is a hou part of your treatment and safety. Be sure to make and go to all appointments, and call your doctor if you are having problems. It's also a good idea to know your test resultsand keep a list of the medicines you take. How can you care for yourself at home? To prevent dehydration, drink plenty of fluids, enough so that your urine is light yellow or clear like water. Choose water and other caffeine-free clear liquids until you feel better. If you have kidney, heart, or liver disease and have to limit fluids, talk with your doctor before you increase the amount of fluids you drink. Take an pcnc-prn-xmzascw pain medicine, such as acetaminophen (Tylenol), ibuprofen (Advil, Motrin),or naproxen (Aleve). Read and follow all instructions on the label. Before you use cough and cold medicines, check the label. These medicines may not be safe for youngchildren or for people with certain health problems. Be careful when taking ptrx-eek-siymxej cold or flu medicines and Tylenol at the same time. Many ofthese medicines have acetaminophen, which is Tylenol. Read the labels to make sure that you are nottaking more than the recommended dose. Too much acetaminophen (Tylenol) can be harmful. Get plenty of rest. Do not smoke or allow others to smoke around you. If you need help quitting, talk to your doctor about stop-smoking programs and medicines. These can increase your chances of quitting for good. When should you call for help? Call 911 anytime you think you may need emergency care. For example, call if: You have severe trouble breathing. Call your doctor now or seek immediate medical care if: You seem to be getting much sicker. You have new or worse trouble breathing. You have a new or higher fever. You have a new rash. Watch closely for changes in your health, and be sure to contact your doctor if: You have a new symptom, such as a sore throat, an earache, or sinus pain. You cough more deeply or more often, especially if you notice more mucus or a change in the color of your mucus. You do not get better as expected. Where can you learn more? Log into your personal health record on https://Skillaton.DOZ and enter K520 in the Education box to learn more about Upper Respiratory Infection (Cold): Care Instructions. Current as of: April 12, 2019 Content Version: 12.6 [employer]. Care instructions adapted under license by your healthcare professional. If you have questions about a medical condition or this instruction, always ask your healthcare professional. [employer] disclaims any warranty or liability for your use of this information. [facility] COVID-19 Post-swabbing Instructions We will do our best to update you as soon as we receive your test results, but if we had to send your test to be run at the lab, you may see the results on Corterahart or receive a call from [facility] before we are able to contact you. You should receive a call from our COVID-19 results provider as soon as possible. If you test POSITIVE for COVID-19: Isolate until: - it has been 10 days since you developed symptoms AND - you have been without a fever (100.4 F) for at least 24 hours without the use of fever reducing medication AND - your symptoms are improving Isolation is when you test positive for COVID-19 and is meant to keep the infected person away fromall others, even in their own home. If you live with others, stay in a specific sick room or area and away from other people or animals, including pets. Use a separate bathroom, if available. Seek emergency medical care immediately if you develop worsening warning signs including: - trouble breathing - persistent pain or pressure in the chest - new confusion - inability to wake or stay awake - bluish lips or face It is not recommended by the CDC to have another COVID-19 test done in order to discontinue isolation or return to work/school. We can provide return to work and school documentation as needed. If you test NEGATIVE for COVID-19: If you are under a 14 day quarantine because of significant exposure defined as close contact with someone that has a laboratory confirmed infection from COVID- 19 or that person was diagnosed by a medical professional, then a negative COVID-19 test does not clear you from the 14 day quarantine. Youwere likely not clinically infectious at the time of the test. This does not mean that you will notget sick and develop symptoms. It is possible that you were in the early phase of the infection at the time of your test and you could be positive later. For these reasons: 1) If the test was due to having symptoms WITH significant exposure, you should remain in quarantine: - for the full 14 days AND - you have been without a fever (100.4 F) for at least 24 hours without the use of fever reducing medication AND - your symptoms are improving If you are unable to separate yourself completely from the COVID-19 positive person (i.e. parent caring for a child), CDC guidelines recommend you quarantine for 24 days (10 days from symptom onset of the COVID positive person PLUS 14 additional days). 2) If the test was due to symptoms WITHOUT significant exposure, you may return to work/school if: - you have been without a fever (100.4 F) for at least 24 hours without the use of fever reducing medication AND - your symptoms are improving When Do I Self-Quarantine? You should quarantine if you have had a significant exposure which is defined as having been in close contact (as defined below) with someone that has a laboratory confirmed infection from COVID-19 or that person was diagnosed by a medical professional. This includes contact within 48 hours prior to when the COVID-19 positive person developed symptoms. - Quarantine is used to keep someone who might have been exposed to COVID-19 away from others. - Quarantine helps prevent spread of disease that can occur before a person knows they are sick or if they are infected with the virus without feeling symptoms. - People in quarantine should stay home, separate themselves from others, monitor their health, andfollow directions from their state or local health department. What counts as close contact? - You were within 6 feet of someone who has COVID-19 for at least 15 minutes - You provided care at home to someone who is sick with COVID-19 - You had direct physical contact with the person (touched, hugged, or kissed them) - You shared eating or drinking utensils - They sneezed, coughed, or somehow got respiratory droplets on you When and How Will I Get Results? Tests performed in the clinic will be available within 15-20 minutes from initiation of test. If your test was sent out to the lab for testing, it could take anywhere from 1-5 days after your specimen is collected. The provider/practice who placed the order for your test will notify you of your results. - If you have an active [employer] account, and your COVID-19 test is negative (not detected), then you will be notified through your [employer] account. You should call the urgent care if you have any further questions. - If your COVID-19 test is positive (detected), you will receive a phone call to discuss your results and answer any questions you might have at that time. Please make sure [facility] has your updated phone number so we can contact you. [facility] will notify the [facility] of any positive results to comply with state regulations. What Happens After I Get Tested if I Develop Worsening COVID-19 Symptoms? All patients should self-quarantine at home until they receive their test results. While self-quarantining, contact your PCP or return to the urgent care if you develop any of the following: - A fever of 103 degrees F (39.4 C) or higher - A fever that lasts more than 3 days without medication - A fever that returns after being gone for more than 24 hours - Chest pain or difficulty breathing - A worsening of current symptoms For work concerns, please contact your employer's HR department. How Do I Self-Quarantine? - Stay home until 14 days after last exposure and maintain social distance (at least 6 feet) from others at all times - Avoid contact with people at higher risk for severe illness from COVID-19 - Self-monitor for symptoms: - Check temperature twice a day - Watch for fever (100.4F or higher), cough, shortness of breath, or other CDC recognized symptoms of COVID-19 If I test positive, what about those with which I have had close contact (household members, partners, close friends, etc)? Anyone with close contact (as defined above) within 48 hours prior to when the COVID-19 positive person developed symptoms should self-quarantine for 14 days as above. What Do I Do If I am Sick? Stay Home: If you are sick, stay home from work, school, public places, and social gatherings Social Distance: maintain 6 feet of distance from other people. Monitor Your Symptoms: If you develop fever, shortness of breath, confusion, or any respiratory symptoms, please notify your doctor immediately Cover Your Cough: Cough and sneeze into your shirt sleeve or inner elbow. Do not cough into your hands or into the air. If available, cough into a tissue and throw it into a trash can. Wash Your Hands: Wash hands often with soap and warm water and/or alcohol based hand mine motor operator, scrubbing your hands for at least 20 seconds. Wash your hands after sneezing or coughing, after going to the bathroom, and before eating or drinking. Wear a Mask: Wear a face mask when around others. Always wear a face mask (if able) if you have to leave your home Don't Touch: avoid touching your eyes, nose, and mouth Don't Share: avoid sharing items with others as they can spread infection Call First: If you do need to seek urgent medical care, call the facility first to let them know you are on your way Other COVID Questions? CDC - https://www.cdc.gov/coronavirus/2019-ncov/index.html - https://www.cdc.gov/coronavirus/2019-ncov/he-pmo-dba-sick/quarantine.html [facility] - Website: https://coronavirus.[place].gov/wps/portal/gov/covid-19/home - Hotline: 269-3-ION-OD (822-631-5386) [facility]: https://blog.DOZ/series/umfjm-33-ypqkcxkqkmx-toolkit/ Thank you for choosing [facility] for your health care needs today. You will be notified of your result..You will be given further instructions at that time. ER for high fever, shaking chills, vomiting, chest pain, abdominal pain, difficulty breathing or an symptom of concern. documented in this encounter* Tierra Plascencia CNP - 04/10/2020 11:10 AM EST OFFICE VISIT PROGRESS NOTE Laurie Escobar is a 24 y.o. female with a past medical history of Patient Active Problem List Diagnosis Gastroesophageal reflux disease Abnormal EKG Palpitations Anxiety who presents to the office today for palpitations. [place] and was told that she has mitrial valve prolapse. Patient states that no testing was completed and the told her this diagnosis just by listening to her. She states that he told her that he heard a click. Patient states that the doctor tried to tell her that she had anxiety and attempted to put her on an anti-anxiety medication for which the patient refused. Patient states that the doctor than prescribed propranolol to which she has not started taking. Palpitations This is a new problem. The current episode started more than 1 month ago. The problem occurs every several days. The problem has been waxing and waning. The symptoms are aggravated by stress. Associated symptoms include anxiety, diaphoresis and an irregular heartbeat. Pertinent negatives include nochest fullness, chest pain, coughing, dizziness, nausea, shortness of breath or vomiting. She has tried nothing for the symptoms. Risk factors include stress. Gastroesophageal Reflux She complains of heartburn. She reports no abdominal pain, no chest pain, no coughing, no nausea, no sore throat or no stridor. This is a new problem. The current episode started more than 1 month ago. The problem occurs frequently. The problem has been waxing and waning. The heartburn is located in the substernum and right chest. The heartburn is of severe intensity. The heartburn wakes her fromsleep. The heartburn limits her activity. The heartburn changes with position. Associated symptoms include fatigue. She has tried an antacid for the symptoms. Anxiety Presents for initial visit. Symptoms include excessive worry, insomnia, irritability, nervous/anxious behavior and palpitations. Patient reports no chest pain, decreased concentration, dizziness, nausea or shortness of breath. Symptoms occur most days. The severity of symptoms is interfering with daily activities. The quality of sleep is fair. Nighttime awakenings: one to two. There are no known risk factors. Health Maintenance Topic Date Due Tetanus: Every 10yrs Never done Chlamydia Screening Never done Pap Smear Never done Wellness Visit Never done HIV Screening Never done COVID-19 Vaccine (1 of 2) Never done Hepatitis C Screening Never done HPV Vaccines (2 - 3-dose series) 01/31/2016 Sequential Influenza Vaccine (1) 08/16/2020 (Originally 10/19/2019) Depression Screening (PHQ9) 10/19/2020 The following portions of the patient's history were reviewed and updated as appropriate: allergies, current medications and problem list. Family History Problem Relation Age of Onset Heart disease Father Lung cancer Paternal Grandfather No Known Problems Mother No Known Problems Sister Multiple sclerosis Maternal Grandfather No Known Problems Sister Social History Socioeconomic History Marital status: Spouse name: Not on file Number of children: Not on file Years of education: Not on file Highest education level: Not on file Occupational History Not on file Social Needs Financial resource strain: Not very hard Food insecurity Worry: Never true Inability: Never true Transportation needs Medical: No Non-medical: No Tobacco Use Smoking status: Never Smoker Smokeless tobacco: Never Used Substance and Sexual Activity Alcohol use: Never Frequency: Never Binge frequency: Never Drug use: Never Sexual activity: Yes Partners: Male Lifestyle Physical activity Days per week: Not on file Minutes per session: Not on file Stress: Not on file Relationships Social connections Talks on phone: More than three times a week Gets together: Three times a week Attends yazidi service: Not on file Active member of club or organization: Not on file Attends meetings of clubs or organizations: Not on file Relationship status: Not on file Other Topics Concern Not on file Social History Narrative Merged History Encounter Past Surgical History: Procedure Laterality Date APPENDECTOMY APPENDECTOMY 2006 Allergies Allergen Reactions Amoxicillin Hives Amoxicillin Rash Patient's Medications New Prescriptions BUSPIRONE (BUSPAR) 5 MG TABLET Take 1 (one) tablet (5 mg total) by mouth 3 (three) times a day as needed (anxiety) . PANTOPRAZOLE (PROTONIX) 40 MG TABLET Take 1 (one) tablet (40 mg total) by mouth daily . Previous Medications No medications on file Modified Medications No medications on file Discontinued Medications DOXYCYCLINE HYCLATE (VIBRA-TABS) 100 MG TABLET Take 1 (one) tablet (100 mg total) by mouth 2 (two) times a day . PROPRANOLOL (INDERAL) 10 MG TABLET take 1 tablet by mouth three times a day if needed for PALPITATIONS Review of Systems Review of Systems Constitutional: Positive for diaphoresis, fatigue and irritability. Negative for activity change and appetite change. HENT: Negative for sore throat. Respiratory: Negative for cough and shortness of breath. Cardiovascular: Positive for palpitations. Negative for chest pain. Gastrointestinal: Positive for heartburn. Negative for abdominal pain, nausea and vomiting. Neurological: Negative for dizziness, facial asymmetry, light-headedness and headaches. Psychiatric/Behavioral: Negative for agitation and decreased concentration. The patient is nervous/anxious and has insomnia. Vitals: 04/10/20 1106 BP: 105/79 BP Location: Left arm Patient Position: Sitting BP Cuff Size: Adult Pulse: 81 Resp: 16 Temp: 98.8 F (37.1 C) TempSrc: Temporal SpO2: 97% Weight: 52.9 kg (116 lb 9.6 oz) Height: 5' 6 Body mass index is 18.82 kg/m . Physical Exam Physical Exam Vitals signs reviewed. Constitutional: Appearance: Normal appearance. She is well-developed. HENT: Head: Normocephalic. Right Ear: External ear normal. Left Ear: External ear normal. Nose: Nose normal. Eyes: General: Lids are normal. Cardiovascular: Rate and Rhythm: Normal rate and regular rhythm. Heart sounds: Normal heart sounds. Pulmonary: Effort: Pulmonary effort is normal. Breath sounds: Normal breath sounds. Musculoskeletal: Normal range of motion. Skin: General: Skin is warm and dry. Neurological: General: No focal deficit present. Mental Status: She is alert and oriented to person, place, and time. Coordination: Coordination is intact. Gait: Gait is intact. Psychiatric: Attention and Perception: Attention normal. Mood and Affect: Mood normal. Speech: Speech normal. Behavior: Behavior normal. Behavior is cooperative. Thought Content: Thought content normal. Cognition and Memory: Cognition normal. Judgment: Judgment normal. OARRS/NARxCHECK Report Received and Assessed: No data found Date controlled substance agreement signed: No data found Date of last drug screen: No data found Functional Assessment: No data found The ASCVD Risk score (Keisermele PAREKH Jr., et al., 2013) failed to calculate for the following reasons: The 2013 ASCVD risk score is only valid for ages 40 to 79 Assessment/Plan Problem List Items Addressed This Visit Digestive Gastroesophageal reflux disease I would like you to start taking Protonix 40 mg daily to help with your acid reflux. I believe someof the symptoms you are caused by your acid reflux. Please take this medication daily. Other Abnormal EKG Today we will get an echocardiogram will contact you to schedule this appointment. Relevant Orders Echocardiogram complete (Completed) Palpitations - Primary EKG was completed here in the office today, and it was slightly abnormal. I also believe that anxiety may be coming some of the palpitations you are experiencing. I would like you to start buspirone 5 mg up to 3 times daily. Relevant Medications busPIRone (BUSPAR) 5 MG tablet Other Relevant Orders ECG 12 Lead (Completed) Anxiety I would like you to start taking buspirone 5 mg daily. This medication should help decrease her anxiety. Relevant Medications busPIRone (BUSPAR) 5 MG tablet Goals None For any new medications prescribed today, patient was educated about indications for the medication, how to take the medication and potential side effects of the medications. documented in this encounter Assessments Diagnosis Difficulty hearing, left- Primary Left ear impacted cerumen Impacted cerumen Diagnosis Infection of toenail- Primary Diagnosis Suspected Covid-19 Virus Infection- Primary Upper respiratory tract infection, unspecified type Diagnosis Abnormal EKG Nonspecific abnormal electrocardiogram (ECG) (EKG) Diagnosis Palpitations- Primary Abnormal EKG Nonspecific abnormal electrocardiogram (ECG) (EKG) Gastroesophageal reflux disease, unspecified whether esophagitis present Anxiety Anxiety state, unspecified Advance Directives No Advanced Directives Records FoundDocuments on File Type Date Recorded Patient 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 Expl anation Advance Directives and Living Will Documents on File Type Date Recorded Patient Copping 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 Expl anation Advance Directives and Livin g Will Advance Directives and Livin g Will 04/18/2020 7:57 AM Documents on File Type Date Recorded Patient Copping 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 Expl anation Advance Directives and Livin g Will Advance Directives and Livin g Will 04/18/2020 7:57 AM Documents on File Type Date Recorded Patient Copping 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 Expl anation Advance Directives and Livin g Will Advance Directives and Livin g Will 09/10/2020 9:53 PM Documents on File Type Date Recorded Patient Copping 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 Expl anation Advance Directives and Livin g Will Advance Directives and Livin g Will 09/10/2020 9:53 PM Summary Purpose Family History No Family History Records FoundNo Family History Records FoundNo Family History Records FoundNo Family History Records FoundNo Family History Records Found Reason for Referral Status Reason Specialty Diagnoses / Procedures Referre d By Contact Referred To Contact Closed Cardiology Diagnoses Abnormal EKG Procedures Echocardiogram complete Tierra Plascencia CNP [address] [place] [phone] Status Reason Specialty Diagnoses / Procedures Referred By Contact Referred To Contact Authorized Specialty Services Required/Patient 's Best Interest Cardiology Diagnoses Palpitations Procedures ECG 12 Lead Tierra Plascencia CNP [address] [place] [phone] Status Reason Specialty Diagnoses / Procedures Referred By Contact Referred To Contact Authorized Specialty Services Required/Patie nt's Best Interest Obstetrics/Gynec ology / Obstetrics and Gynecology Diagnoses Ovarian mass, left Tierra Plascencia, ELMER [address] [place] [address] [phone] Jeffrey Abarca MD [address] [place], [place] [id number] Additional Source Comments Reason for Visit (unrecogniz ed section and content) Reason Comments Ear Fullness left ear Reason Comments Establish Care Reason Comments Sore Throat symptoms started Mon Cough Diarrhea Shortness of Breath Status Reason Specialty Diagnoses / Procedures Referre d By Contact Referred To Contact Closed Cardiology Diagnoses Abnormal EKG Procedures Echocardiogram complete Tierra Plascencia CNP [address] [place] [address] [phone] Reason Comments heart palpitations started 2019 co mes and goes. Reason Comments Cough started yesterday. t aste of blood. Sore Throat Gastroesophageal Reflux Reason Comments Ovarian Cyst US perfromed 09/11/20 Reason Comments Ovarian mass nausea, dizziness Reason Comments [facility] [place] [facility] Other Initial OB RN Louise enciso INFORMATION SOURCE (unrecogn ized section and content) DATE CREATED AUTHOR 10/20/2019 [facility]atory DATE CREATED AUTHOR AUTHOR'S ORGANIZ ATION 12/31/2019 [facility] DATE CREATED AUTHOR AUTHOR'S ORGANIZ ATION 10/06/2020 [facility] DATE CREATED AUTHOR AUTHOR'S ORGANIZ ATION 06/04/2022 [facility] latory DATE CREATED AUTHOR AUTHOR'S ORGANIZ ATION 12/29/2024 [facility] Assessment & Plan Note - Tierra Plascencia CNP - 10/26/2019 3:25 PM EDTAssessment & Plan Note - Tierra Plascencia CNP - 05/02/2020 2:36 PM EDT Miscellaneous Notes (unrecog nized section and content) Associated Problem(s): Infection of toenail At your appointment today you prescribed an antibiotic. Please take this medication as directed, and complete the entire treatment. Please note that some antibiotics can cause an upset stomach and/or diarrhea. If you develop an upset stomach while taking the antibiotic, please eat something small when taking this medication. To prevent diarrhea you to take a probiotic which can be found [id number] or eat yogurt twice a day. documented in this encounter Associated Problem(s): Gastroesophageal reflux disease I would like you to start taking Protonix 40 mg daily to help with your acid reflux. I believe some of the symptoms you are caused by your acid reflux. Please take this medication daily. Associated Problem(s): Anxiety I would like you to start taking buspirone 5 mg daily. This medication should help decrease her anxiety. Associated Problem(s): Palpitations EKG was completed here in the office today, and it was slightly abnormal. I also believe that anxiety may be coming some of the palpitations you are experiencing. I would like you to start buspirone 5 mg up to 3 times daily. Associated Problem(s): Abnormal EKG Today we will get an echocardiogram will contact you to schedule this appointment. documented in this encounter Care Teams (unrecognized sec tion and content) Prefabricator Relationship Specialty Start Date End Date Tierra Plascencia CNP [address] [place] [phone] PCP - General Nurse Practitioner 10/20/19 Tierra Plascencia CNP [address] [place] [phone] PCP - GENI [facility] Provider - [facility] 05/17/20 No, Physician [facility] 10/20/19 Prefabricator Relationship Specialty Start Date End Date Tierra Plascencia CNP [address] [place] [phone] PCP - General Nurse Practitioner 10/20/19 Tierra Plascencia CNP [address] [place] [address] [id number] PCP - GENI Attributed Provider - [facility] 02/17/14 02/16/50 No, Physician [facility] 10/20/19 Prefabricator Relationship Specialty Start Date End Date Tierra Plascencia CNP [address] [place] [phone] PCP - General Nurse Practitioner 10/20/19 Tierra Plascencia CNP [address] [place] [phone] PCP - GENI Attributed Provider - [facility] 02/17/14 02/16/50 No, Physician [facility] 10/20/19 Source Comments (unrecognize d section and content) In the event this informatio n is protected by the Federal Confidentiality of Alcohol and Drug Abuse Patient Records regulations: The Federal rules restrict any use of the information to criminally investigate or prosecute any alcohol or drug abuse patient.[facility] FOR RECORDS PERTAINING TO PATIENTS WHO ARE OR HAVE BEEN ENROLLED IN A CHEMICAL DEPENDENCY/SUBSTANCEABUSE PROGRAM, SOME INFORMATION MAY BE OMITTED. This clinical summary was aggregated from multiple sources. Caution should be exercised in using it in the provision of clinical care. This summary normalizes information from multiple sources, and as a consequence, information in this document may materially change the coding, format and clinical context of patient data. In addition, data may be omitted in some cases. CLINICAL DECISIONS SHOULD BE BASED ON THE PRIMARY CLINICAL RECORDS. [facility] provides no warranty or guarantee of the accuracy or completeness of information in this document.
[2025-01-09] MEDS: 0.9% Saline Lock 10 ML Syringe IV ×2 (00:20→04:08)
[2025-01-09] MEDS: Oxytocin 15 Units/NS 250ml 15 UNITS/250 ML IV.SOLN 334 UNITS IV (00:35)
[2025-01-09] MEDS: Lidocaine 1% (20 ml mdv) 20 ML Vial INFILT (00:42)
[2025-01-09 00:47] LABS: Hematocrit 39.8 % (37-47); Hemoglobin 13.6 g/dL (12.0-15.0); Immature Granulocytes Count 0.240 X10^3/uL (0.0-0.0); Mean Corp Hgb Conc 34.2 g/dL (32-36); Mean Corpuscular Volume 86.1 fL (81-99); Mean Platelet Vol. 11.6 fl (6.2-12.0); NRBC Flagged by Analyzer 0 % (0-5); Platelet Count 209 K/mm3 (150-450); RBC Distribution Width CV 13.4 % (11.6-14.6); RBC Distribution Width SD 41.4 fl (35.1-43.9); Red Blood Count 4.62 M/mm3 (4.2-5.4); White Blood Count 15.6 K/mm3 (4.4-11.0)
[2025-01-09] MEDS: Oxytocin 15 Units/NS 250ml 15 UNITS/250 ML IV.SOLN 83 UNITS IV (01:08)
--- NOTE | 2025-01-09 01:09 | PCM.HP.OB ---
HPI - General General Date of Admission: 01/09/25 HPI Narrative GALINDO DUNCAN, is a 29 F at 40.3 weeks gestation who presents in spontaneous labor. Maternal Data Information TOBIAS Calculator Estimated Delivery Date Method Current WG Current Estimate 01/06/25 Manual 40w 3d PFSH PFSH Allergy/AdvReac Type Severity Reaction Status Date / Time amoxicillin Allergy Other Verified 01/09/25 00:47 NST FHR Rate Baby A Baseline: 140 Variability:: Moderate Accelerations:: 15 x 15 Decelerations:: None NST Reactive:: Yes FHR Category:: Category I ROS Eyes Eyes: Denies blurry vision, change in vision or spots in vision ENT HEENT: Denies dizziness or headache(s) Cardiovascular Cardiovascular: Denies abdominal pain, chest pain or dyspnea Respiratory/Chest Respiratory/Chest: Denies cough, dyspnea, shortness of breath at rest or shortness of breath with exertion Gastrointestinal Gastrointestinal: Denies abdominal pain, diarrhea or vomiting Genitourinary Genitourinary: Denies change in urinary stream, difficulty urinating or dysuria Musculoskeletal Musculoskeletal: Reports none Integumentary Integumentary: Denies rash Neurologic Neurologic: Denies dizziness, headache(s), memory loss or weakness Psychiatric Psychiatric: Reports none Vital Signs Vital Signs Vital Signs: 01/09/25 00:23 01/09/25 00:23 01/09/25 00:55 Pulse Rate 106 H Blood Pressure 103/67 123/71 H BP Systolic 103 123 BP Diastolic 67 71 01/09/25 00:55 Pulse Rate 86 Blood Pressure BP Systolic BP Diastolic Physical Exam Const alert, oriented x3 and no apparent distress General Appearance: cooperative Orientation / Consciousness: awake Exam Limitations: no limitations HEENT normocephalic Head and Scalp: normal to inspection Eyes General Eye: normal appearance of both eyes Neck full ROM and no lymphadenopathy Lymph Lymphatic: no lymphadenopathy noted Chest inspection of chest normal Resp normal respiratory effort, normal air movement and clear to auscultation bilaterally Effort and Inspection: able to speak in complete sentences and symmetric chest movement Cardio regular rate and regular rhythm GI normal to inspection, nondistended, normoactive bowel sounds Manual OB Exam: presentation cephalic Back/Spine normal ROM Extremity full ROM and no calf tenderness Skin no rashes or lesions noted General Skin Exam: no breakdown Neuro oriented x3 and CN's II-XII intact bilaterally Psych mental status grossly normal and thought process normal Labs Labs Labs: Blood Type Pending Antibody Screen Pending Hct, (37-47) 39.8 % Hgb, (12.0-15.0) 13.6 g/dL Syphilis Total Ab Pending Rubella IgG Antibody Pending Assessment & Plan (1) 40 weeks gestation of : (2) History of anxiety: (3) Spontaneous onset of labor: PLAN: Plan CE Admit to labor and delivery Routine labs Anticipate
--- NOTE | 2025-01-09 01:14 | OB.VAGDELI_ITS ---
Assessment & Plan (1) Meconium in amniotic fluid: (2) Precipitous delivery: (3) Laceration, obstetrical, second degree: (4) History of anxiety: (5) (spontaneous vaginal delivery): Maternal Data Information TOBIAS Calculator Estimated Delivery Date Method Current WG Current Estimate 01/06/25 Manual 40w 3d Doctor Who Attended Delivery: Cassia Yap Vaginal Delivery Maternal Presentation Maternal Presentation: Active Labor Vaginal Delivery Information Procedure Performed: Spontaneous Vaginal Delivery Surgeon/Practitioner: Megan Eckert Date of Procedure: 01/09/25 Pre-Procedure Diagnosis: Term gestation, Spontaneous onset of labor Post-Procedure Diagnosis: , precipitous delivery of live male infant Type of anesthesia: Local with 1% Lidocaine Estimated Blood Loss: 250 Time of Delivery: 00:29 Findings Description of procedure: Patient arrived to unit and quickly progressed to complete dilation with urge to push. Bulging bag of fluid coming out of vagina. AROM for large amount of meconium fluid. Assisted patient to hands and knees position. With good maternal effort, head delivered followed by anterior shoulder and remainder of body without any force, delay, or traction. Vigorous male was delivered atraumatically. Assisted nursing with passing under patient and placing skin to skin. Pitocin IV started for active management of the third stage of labor. 3 vessel cord clamped and cut by FOB after delay. Cord blood collected. Placenta delivered spontaneously and intact. A second laceration was repaired in usual fashion using 3-0 Vicryl Rapid after local anesthesia placed. Hemostasis obtained. Vaginal sweep performed. Fundus is firm 2 below U and bleeding is hemostatic. Sponge and sharps counts correct. Patient and bonding well at this time. Dr. Willoughby notified of delivery. Routine post orders placed. Presentation: Vertex Amniotic Membrane Rupture Type: Artificial Amniotic Fluid Description: Thick meconium Placental Delivery Description: Spontaneous Placenta Disposition: [facility] Specimen collected: No Cord Vessel Description: 3 Vessels Cord Entanglement: None Nuchal Cord Compression: Without compression A Gender: Male (1 minute): 8 (5 minute): 9 Delayed Cord Clamping: Yes Building Maintenance Supervisor directional drill operator: No Post Vaginal Deli Medications given after delivery: IV Pitocin Episiotomy Description: None Laceration: 2nd degree Complication Complications: No
[2025-01-09 01:18] LABS: Syphilis Antibodies Nonreactive (Nonreactive)
--- NOTE | 2025-01-09 03:35 | NURSING ---
wrong admission order set placed by this RN: RITA scheduled c/s order set placed incorrectly upon pt admission, this RN placing correct order set and back timing for admission time at this time
[2025-01-10] VITALS: BP 103/59; PULSE 62; RESP 16; TEMP 36.4; O2SAT 98
--- NOTE | 2025-01-10 06:51 | DS.PCM_ITS ---
Providers Date of Admission: 01/09/25 Primary Care Physician: YAMIL SheaC Reason For Visit: VAGINAL DELIVERY Diagnosis Discharge Diagnosis (1) Meconium in amniotic fluid: Status: Acute Code(s): P96.83 - Meconium staining (2) Precipitous delivery: Status: Acute Code(s): O62.3 - Precipitate labor (3) Laceration, obstetrical, second degree: Status: Acute Code(s): O70.1 - Second degree perineal laceration during delivery (4) History of anxiety: Status: Acute Code(s): Z86.59 - Personal history of other mental and behavioral disorders (5) (spontaneous vaginal delivery): Status: Acute Code(s): O80 - Encounter for full-term uncomplicated delivery Plan PPD 1 Routine care support D/C home with follow up in office Medications at Discharge Home Medications omeprazole 20 mg capsule,delayed release 20 mg PO DAILY indigestion 01/09/25 vit no.95-ferrous fumarate 28 mg-folic acid 800 mcg tablet () 1 tab PO DAILY 01/09/25 acetaminophen 500 mg tablet 1,000 mg (2 x 500 mg) PO Q6H PRN PRN Pain 1-10 Or Fever #0 tabs 01/10/25 naproxen 500 mg tablet 500 mg PO Q8H PRN PRN Pain Score 1-10 #0 tabs 01/10/25 Hospital Course Operations None Procedures None Summary of Care Provided Minutes Spent on Discharge: 15 Hospital Course: Patient had vaginal delivery. Hospital course was uneventful. Physical Exam Narrative Patient seen at bedside. Denies pain. Ambulating and voiding without difficulty. Lochia decreased. Desires discharge home today. Const alert and oriented x3 General Appearance: Negative for in distress HEENT normocephalic Eyes General Eye: normal appearance of both eyes Neck General: normal visual inspection Chest Chest: symmetrical chest wall rise Resp normal respiratory effort and normal air movement Effort and Inspection: symmetric chest movement; Negative for tachypneic Auscultation: clear to auscultation bilaterally Cardio regular rate and regular rhythm Peripheral Pulses: pulses 2+ throughout GI normal to inspection, nondistended, normoactive bowel sounds Narrative: Ice to perineum OB / External & Speculum: vaginal bleeding and other Lochia decreasing Uterus Palpation: uterus fundus firm (Below U) Extremity normal to inspection, full ROM and normal capillary refill Skin no rashes or lesions noted Neuro oriented x3, CN's II-XII intact bilaterally and gait normal Psych mental status grossly normal, thought process normal and activity/motor behavior normal Weight / BMI Weight Weight: 180 lb Body Mass Index (BMI) 29.9 PRE- weight 135 lb PRE- Body Mass Index 22.4 (BMI) ABG / Lab / Microbiology Data 01/09/25 00:20 D/C Instructions Discharge Activity: Return to Normal Activity, No Restrictions, May Drive, May Shower and May Take a Tub Bath (Warm water only. No bath salts, soaps, bubbles) May resume sexual activity in: 6-8 weeks Weight Bearing Status: Weight bearing as tolerated Call your doctor if you observe: Fever of 101 or Higher, Inability to urinate, Using more than 1 pad per hour, Shortness of breath, Dizziness, Chest pain, Calf discomfort and Uncontrolled pain DC O2, CPAP, BIPAP Needs Home O2 Discharge instructions: No Please Follow Up With: [facility] Caro VERA When: 2 weeks in office or virtual Meaningful Use Info Meaningful Use Meaningful Use Diagnoses (Choose all that apply): None applicable Discharge Plan Admission Admit Date/Time: 01/09/25 00:05 Primary Reason for Your Visit: Labor and Delivery Attending Provider: Megan Eckert Primary Care Provider: Tierra Plascencia Discharge Orders/Prescriptions Prescriptions: New acetaminophen 500 mg Tablet 1,000 mg PO Q6H PRN PRN (Reason: Pain 1-10 Or Fever) Qty: 0 0RF naproxen 500 mg Tablet 500 mg PO Q8H PRN PRN (Reason: Pain Score 1-10) Qty: 0 0RF Continued PNV no.95-ferrous fumarate-FA [] 28 mg iron- 800 mcg tablet 1 tab PO DAILY omeprazole 20 mg capsule,delayed release(DR/EC) 20 mg PO DAILY Referrals / Follow Up: Megan Eckert CNM [Med Staff - [facility] Prof, Obstetrics] Tierra Plascencia NP-C [Primary Care Provider, Family Practice] Disposition Disposition (needs filled in before D/C Order can be placed): Home, Self Care
[2025-01-10 08:30] VITALS: BP 110/61; PULSE 66; RESP 16; TEMP 36.6; O2SAT 97
[2025-01-10 13:45] VITALS: BP 128/60; PULSE 78; RESP 16; TEMP 36.7; O2SAT 98
== END 2025-01-10 15:20 | disposition home or self-care (01) | DRG 560 ==
PROVIDERS: Admitting Provider Advanced Practice Midwife; PCP Nurse Practitioner Family; Referring Provider Advanced Practice Midwife; Visit Provider Advanced Practice Midwife
DX: O62.3 Precipitate labor (principal); Z37.0 Single live birth; O70.1 Second degree perineal laceration during delivery; Z3A.40 40 weeks gestation of pregnancy; Z86.59 Personal history of other mental and behavioral disorders; O77.0 Labor and delivery complicated by meconium in amniotic fluid
CPT/HCPCS: 59050; 85025; 86762; 86780; 86850; 86900; 86901; 99221; A4216; G0378